=== PATIENT | female | born 1965 | race Caucasian/White ===

== ENCOUNTER 2016-10-25 05:42 | Outpatient (CLI) | payer BC ==
[2016-10-25] VITALS (18 sets, daily range): BP systolic 103–141; BP diastolic 55–63; PULSE 48–56; RESP 16–20; TEMP 97.8–98.2; O2SAT 91–96; Ht 160 cm; Wt 93.3 kg
[~2016-10-25] VITALS: Ht 160 cm; Wt 93.3 kg
[~2016-10-25 05:42] MED LIST: AMLO5TAB2 PO; ASPI-557 PO; ATOR40TA64 PO; CLOP75TA PO; LOSA100T44 PO; METO25TA6 PO; NITR0.4T SL; OMEP20CA4 PO; TRAZ-170 PO
--- NOTE | 2016-10-25 05:50 | NUR ---
ADMIT TO ROOM 118 FROM HOME, AMBULATORY, WITH . ALERT AND ORIENTED.
[2016-10-25 06:49] LABS: BASOPHILS # (AUTO) 0.1 T/MM3 (0-0.2); BASOPHILS % (AUTO) 0.5 % (0-2); EOSINOPHILS # (AUTO) 0.3 T/MM3 (0-0.5); EOSINOPHILS % (AUTO) 2.3 % (0-4); HCT - HEMATOCRIT 38.4 % (36-46); HGB - HEMOGLOBIN 12.9 GM/DL (12-16); IMMATURE GRANULOCYTE # (AUTO) 0.04 T/MM3 (0.00-0.03); IMMATURE GRANULOCYTE % (AUTO) 0.3 % (0.0-0.5); LYMPHOCYTES # (AUTO) 3.9 T/MM3 (1-4.8); LYMPHOCYTES % (AUTO) 32.3 % (23-45); MEAN CORPUSCULAR HGB 30.3 UUG (26-34); MEAN CORPUSCULAR HGB CONC(MCHC 33.6 GM/DL (31-37); MEAN CORPUSCULAR VOLUME 90.1 UM3 (80-100); MEAN PLATELET VOLUME 9.3 UM3 (9.4-12.4); MONOCYTES # (AUTO) 0.9 T/MM3 (0-0.8); MONOCYTES % (AUTO) 7.5 % (0-9.0); NEUTROPHILS #(AUTO)-ABSOLUTE 6.9 T/MM3 (1.8-7.7); NEUTROPHILS % (AUTO) 57.1 % (33-66); RED BLOOD COUNT 4.26 M/MM3 (4.00-5.20)
[2016-10-25 07:00] LABS: ANION GAP 13 MEQ/L (5-15); BUN/CREATININE RATIO 15 RATIO (6-26); CALCIUM 9.2 MG/DL (8.4-10.2); CHLORIDE 109 MEQ/L (98-107); CO2 - CARBON DIOXIDE 22 MEQ/L (22-30); CREATININE 0.8 MG/DL (0.7-1.2); GLOMERULAR FILTRATION RATE 75; GLUCOSE 135 MG/DL (65-110); POTASSIUM 3.8 MEQ/L (3.6-5); SODIUM 144 MEQ/L (134-144)
[2016-10-25] MEDS: NORMAL SALINE 1,000 ML IV SCH ×2 (07:08→19:31)
[2016-10-25] MEDS ORDERED: HEPARIN 1,000units in NS 500ml BAG IV ONE (07:12)
[2016-10-25] MEDS ORDERED: LIDOCAINE 1% (10mg/ml) 30ml SDV ONE (07:12)
[2016-10-25] MEDS ORDERED: IOHEXOL 350mg/ml 200ml BOTTLE ONE (07:13)
[2016-10-25] MEDS ORDERED: FENTANYL 100mcg/2ml INJECTION ONE ×2 (07:23→08:18)
[2016-10-25] MEDS ORDERED: SALINE FLUSH 10ml SYRINGE ONE (07:24)
[2016-10-25] MEDS ORDERED: MIDAZOLAM 5mg/5ml INJECTION ONE (07:24)
--- NOTE | 2016-10-25 07:37 | NUR ---
TO INTAKE CLERK PATIENT TAKEN TO INTAKE CLERK AT THIS TIME VIA CART AND INTAKE CLERK STAFF. PATIENT STABLE AND IN NO ACUTE DISTRESS AT TIME OF TRANSFER. CHART, CONSENT, AND BP CUFF SENT WITH PATIENT. WILL CONTINUE TO MONITOR.
[2016-10-25] MEDS ORDERED: MORPHINE SULFATE 4 MG SYRINGE IV PRN ×2 (08:30)
[2016-10-25] MEDS ORDERED: ACETAMINOPHEN 325 MG TABLET PO PRN (08:30)
[2016-10-25] MEDS ORDERED: ONDANSETRON 4mg/2ml INJECTION IV PRN (08:30)
[2016-10-25] MEDS ORDERED: MAG-AL + SIM LIQUID 30 ML UDC PO PRN (08:30)
[2016-10-25] MEDS ORDERED: LORAZEPAM 2 MG/ML INJECTION IV PRN (08:30)
[2016-10-25] MEDS ORDERED: PROMETHAZINE 25 MG INJECTION IV PRN (08:30)
[2016-10-25] MEDS ORDERED: BISACODYL 5 MG E.C. TABLET PO PRN (08:30)
[2016-10-25] MEDS ORDERED: METOCLOPRAMIDE 10mg/2ml INJECTION IV PRN (08:30)
[2016-10-25] MEDS ORDERED: MILK OF MAGNESIA 30 ML SUSP PO PRN (08:30)
[2016-10-25] MEDS ORDERED: BISACODYL 10 MG SUPPOSITORY RECTALLY PRN (08:30)
[2016-10-25] MEDS ORDERED: NITROGLYCERIN 0.4 MG SUBLINGUAL TABLET SL PRN ×2 (08:30→15:45)
[2016-10-25] MEDS ORDERED: LORAZEPAM 1 MG TABLET PO PRN (08:30)
[2016-10-25] MEDS ORDERED: HYDROCODONE/APAP 5 mg/325 mg TABLET PO PRN (08:30)
[2016-10-25] MEDS ORDERED: ATROPINE 1 MG/ML VIAL IV PRN (08:30)
--- NOTE | 2016-10-25 08:47 | NUR ---
FROM POT FIREMAN PATIENT ARRIVED FROM POT FIREMAN AT THIS TIME VIA CART AND POT FIREMAN STAFF. PATIENT STABLE AND ON ROOM AIR AT TIME OF TRANSFER. SLIDE BOARD USED TO TRANSFER PATIENT TO SURGICAL UNIT BED. A/OX3. HOB FLAT. HEAD/KNEES LOCKED ON BED. PATIENT GIVEN INSTRUCTIONS ON BEDREST. WILL CONTINUE TO MONITOR.
--- NOTE | 2016-10-25 10:33 | CVPROF ---
DATE OF PROCEDURE October 25, 2016 REFERRING ENTITY [facility] INDICATIONS The patient is a 51-year-old lady with peripheral arterial disease and recurrent claudication and abnormal lower extremity duplex study and was referred for further evaluation by angiography and possible intervention. INFORMED CONSENT Informed consent was obtained after explaining the procedure and the potential risks to the patient who agreed to proceed with the procedure. PROCEDURE 1. Abdominal aortography by placing catheter in abdominal aorta across the renal arteries. 2. Pelvic angiography by placing catheter in distal abdominal aorta. 3. Selective right lower extremity angiogram using crossover technique and placing catheter in right SFA and right common femoral arteries. 4. Runoffs of the left lower extremity through the left femoral sheath. 5. HEALTH AND SAFETY ADVISOR of the right SFA for in-stent restenosis using a 6.0 x 150 drug-eluting Admiral IN.PACT balloon. 6. Successful Mynx deployment for hemostasis. TECHNIQUE She was prepped and draped in the usual sterile techniques. Conscious sedation was performed using Versed and fentanyl. 1% lidocaine was used for local anesthesia. Using modified Seldinger technique, arterial access was obtained into the left femoral artery with placement of a 6-Icelandic arterial sheath. ABDOMINAL AORTOGRAPHY Abdominal aortography showed diffuse disease of the abdominal aorta with about 30% mid abdominal aortic stenosis. There were single renal arteries to each kidney. Left renal artery had about 75-80% stenosis. Right renal artery had about 30-40% stenosis. PELVIC ANGIOGRAPHY Pelvic angiography showed minor irregularities of the common iliacs, external and internal iliacs bilaterally. Left common femoral artery was patent with about 30% stenosis. The right common femoral artery was patent with about 20% stenosis. Selective right lower extremity angiogram showed patent profunda. SFA had 80-90% in-stent restenosis. Popliteal artery was patent. Right posterior tibial artery was occluded. Right anterior tibial and peroneal arteries were patent. Left lower extremity runoffs showed to about 30-40% stenosis of the ostium of the left SFA. Left profunda had ostial 40% stenosis. Left SFA stent was patent with about 40% proximal edge of the stent stenosis. Left popliteal artery was patent. Left posterior tibial artery was occluded. Left anterior tibial artery and peroneal arteries were patent. After reviewing the images we decided to proceed with intervention on right SFA. 7000 units of heparin was administered. The sheath was exchanged for a 7-Icelandic 45 cm Destination sheath which was delivered over the wire into the right SFA. The lesions were crossed using an exchange J-wire. A 6.0 x 150 drug-eluting Admiral IN.PACT balloon was delivered to the lesion site where it was inflated up to 12 atmospheres. Next angiogram showed excellent results with no residual stenosis. The patient tolerated the procedure well with no complications. Long sheath was exchanged for a short 7-Icelandic sheath and Mynx was used for hemostasis. IMPRESSION 1. Peripheral arterial disease as described above. 2. Successful HEALTH AND SAFETY ADVISOR of the right SFA for in-stent restenosis using Admiral IN.PACT drug-eluting balloon. 3. Successful Mynx deployment for hemostasis. PLAN Will keep her on dual antiplatelet platelet therapy at least for three months and have her follow up in clinic. Will continue risk management in future. KELLI
--- NOTE | 2016-10-25 11:10 | NUR ---
CM CM IN TO VISIT WITH PT. SHE IS ALERT AND ORIENTED. HER SPOUSE IS PRESENT. THEY DENY DC NEEDS. PT PLANS TO RETURN HOME. LACE SCORE IS 2. SHE IS GIVEN CM CONTACT INFORMATION. Addendum: 10/25/16 at 1110 by GREGORY WIGGINS RN Amended: Links added.
[2016-10-25] MEDS: AMLODIPINE 5 MG TABLET PO SCH (21:58)
[2016-10-25] MEDS ORDERED: OMEPRAZOLE 20 MG CAPSULE PO SCH (22:00)
[2016-10-25] MEDS ORDERED: TRAZODONE 50 MG TABLET PO SCH (22:00)
[2016-10-25] MEDS ORDERED: ATORVASTATIN 40 MG TABLET PO SCH (22:00)
[2016-10-26 00:23] VITALS: BP 131/63; PULSE 60; RESP 20; TEMP 98; O2SAT 98
[2016-10-26 04:00] VITALS: BP 123/57; PULSE 63; RESP 22; TEMP 98.8; O2SAT 95
--- NOTE | 2016-10-26 05:15 | NUR ---
SHIFT SUMMARY PATIENT IS ALERT AND ORIENTED X3 THIS SHIFT. VITAL SIGNS ARE STABLE ON ROOM AIR. PATIENT AMBULATES WELL WITH STAND BY. PATIENT HAS SMALL AMOUNT OF DRAINAGE AT GROIN SITE FROM PREVIOUS SHIFT, BUT THIS HAS NOT SURPASSED THE PREVIOUS OUTLINE. PATIENT HAS REPORTED NO PAIN, NAUSEA OR VOMITING. WILL CONTINUE TO MONITOR.
[2016-10-26 05:18] LABS: BASOPHILS % (AUTO) 0.2 % (0-2); EOSINOPHILS # (AUTO) 0.3 T/MM3 (0-0.5); EOSINOPHILS % (AUTO) 1.9 % (0-4); HCT - HEMATOCRIT 37.4 % (36-46); HGB - HEMOGLOBIN 12.5 GM/DL (12-16); IMMATURE GRANULOCYTE # (AUTO) 0.03 T/MM3 (0.00-0.03); IMMATURE GRANULOCYTE % (AUTO) 0.2 % (0.0-0.5); LYMPHOCYTES # (AUTO) 3.2 T/MM3 (1-4.8); LYMPHOCYTES % (AUTO) 23.8 % (23-45); MEAN CORPUSCULAR HGB 30.4 UUG (26-34); MEAN CORPUSCULAR HGB CONC(MCHC 33.4 GM/DL (31-37); MEAN PLATELET VOLUME 9.5 UM3 (9.4-12.4); MONOCYTES # (AUTO) 0.9 T/MM3 (0-0.8); MONOCYTES % (AUTO) 6.4 % (0-9.0); NEUTROPHILS % (AUTO) 67.5 % (33-66); RED BLOOD COUNT 4.11 M/MM3 (4.00-5.20); WBC - WHITE BLOOD COUNT 13.4 T/MM3 (4.5-11.0)
[2016-10-26 05:27] LABS: ANION GAP 10 MEQ/L (5-15); BUN/CREATININE RATIO 11 RATIO (6-26); CHLORIDE 108 MEQ/L (98-107); CO2 - CARBON DIOXIDE 25 MEQ/L (22-30); CREATININE 0.9 MG/DL (0.7-1.2); GLOMERULAR FILTRATION RATE 66; GLUCOSE 139 MG/DL (65-110); SODIUM 143 MEQ/L (134-144)
[2016-10-26 08:07] VITALS: BP 130/62; PULSE 62; RESP 18; TEMP 97.5; O2SAT 94
[2016-10-26] MEDS ORDERED: LOSARTAN 100 MG TABLET PO SCH (09:00)
[2016-10-26] MEDS ORDERED: ASPIRIN *EC* 81mg TABLET PO SCH (09:00)
[2016-10-26] MEDS ORDERED: CLOPIDOGREL 75 MG TABLET PO SCH ×2 (09:00)
[2016-10-26] MEDS: NORMAL SALINE 1,000 ML IV SCH (09:11)
[2016-10-26] MEDS: AMLODIPINE 5 MG TABLET PO SCH (09:44)
[2016-10-26 10:07] VITALS: PULSE 62; RESP 18
[2016-10-26 10:15] VITALS: PULSE 62; RESP 18
--- NOTE | 2016-10-26 10:35 | NUR ---
Discharge Pt discharge home in good condition. discharge instructions provided to pt and pt's friend in room. Instructions included but not limited to; follow up appointments, side effects to expect and report, medications, and restrictions. Pt ambulated to front exit with all personal belongings.
--- NOTE | 2016-10-26 11:00 | DSPDOC ---
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 WITH INTERM YANIV Laboratory Laboratory Tests Test 10/25/16 06:36 10/26/16 04:32 White Blood Count 12.0T/MM3 13.4T/MM3 Red Blood Count 4.26M/MM3 4.11M/MM3 Hemoglobin 12.9GM/DL 12.5GM/DL Hematocrit 38.4% 37.4% Mean Corpuscular Volume 90.1UM3 91.0UM3 Mean Corpuscular Hemoglobin 30.3UUG 30.4UUG Mean Corpuscular Hemoglobin Concent 33.6GM/DL 33.4GM/DL RDW Standard Deviation 43.4FL 43.4FL Platelet Count 304T/MM3 299T/MM3 Mean Platelet Volume 9.3UM3 9.5UM3 Immature Granulocyte % (Auto) 0.3% 0.2% Neutrophils (%) (Auto) 57.1% 67.5% Lymphocytes (%) (Auto) 32.3% 23.8% Monocytes (%) (Auto) 7.5% 6.4% Eosinophils (%) (Auto) 2.3% 1.9% Basophils (%) (Auto) 0.5% 0.2% Absolute Immature Granulocyte (auto 0.04T/MM3 0.03T/MM3 Absolute Neutrophils (auto) 6.9T/MM3 9.0T/MM3 Absolute Lymphocytes (auto) 3.9T/MM3 3.2T/MM3 Absolute Monocytes (auto) 0.9T/MM3 0.9T/MM3 Absolute Eosinophils (auto) 0.3T/MM3 0.3T/MM3 Absolute Basophils (auto) 0.1T/MM3 0.0T/MM3 Turbidity < 20 < 20 Sodium Level 144MEQ/L 143MEQ/L Potassium Level 3.8MEQ/L 4.0MEQ/L Chloride Level 109MEQ/L 108MEQ/L Carbon Dioxide Level 22MEQ/L 25MEQ/L Anion Gap 13MEQ/L 10MEQ/L Blood Urea Nitrogen 12.0MG/DL 10.0MG/DL Creatinine 0.8MG/DL 0.9MG/DL Glomerular Filtration Rate Calc 75 66 BUN/Creatinine Ratio 15RATIO 11RATIO Glucose Level 135MG/DL 139MG/DL Calculated Osmolality 279MOSM/KG 276MOSM/KG Calcium Level 9.2MG/DL 9.0MG/DL Icterus Index < 2 < 2 Chemistry Specimen Hemolysis < 15 < 15 Laboratory Tests Test 10/25/16 06:36 10/26/16 04:32 White Blood Count 12.0T/MM3 (4.5-11.0) 13.4T/MM3 (4.5-11.0) Red Blood Count 4.26M/MM3 (4.00-5.20) 4.11M/MM3 (4.00-5.20) Hemoglobin 12.9GM/DL (12-16) 12.5GM/DL (12-16) Hematocrit 38.4% (36-46) 37.4% (36-46) Mean Corpuscular Volume 90.1UM3 (80-100) 91.0UM3 (80-100) Mean Corpuscular Hemoglobin 30.3UUG (26-34) 30.4UUG (26-34) Mean Corpuscular Hemoglobin Concent 33.6GM/DL (31-37) 33.4GM/DL (31-37) RDW Standard Deviation 43.4FL (36.9-50.2) 43.4FL (36.9-50.2) Platelet Count 304T/MM3 (130-400) 299T/MM3 (130-400) Mean Platelet Volume 9.3UM3 (9.4-12.4) 9.5UM3 (9.4-12.4) Immature Granulocyte % (Auto) 0.3% (0.0-0.5) 0.2% (0.0-0.5) Neutrophils (%) (Auto) 57.1% (33-66) 67.5% (33-66) Lymphocytes (%) (Auto) 32.3% (23-45) 23.8% (23-45) Monocytes (%) (Auto) 7.5% (0-9.0) 6.4% (0-9.0) Eosinophils (%) (Auto) 2.3% (0-4) 1.9% (0-4) Basophils (%) (Auto) 0.5% (0-2) 0.2% (0-2) Absolute Immature Granulocyte (auto 0.04T/MM3 (0.00-0.03) 0.03T/MM3 (0.00-0.03) Absolute Neutrophils (auto) 6.9T/MM3 (1.8-7.7) 9.0T/MM3 (1.8-7.7) Absolute Lymphocytes (auto) 3.9T/MM3 (1-4.8) 3.2T/MM3 (1-4.8) Absolute Monocytes (auto) 0.9T/MM3 (0-0.8) 0.9T/MM3 (0-0.8) Absolute Eosinophils (auto) 0.3T/MM3 (0-0.5) 0.3T/MM3 (0-0.5) Absolute Basophils (auto) 0.1T/MM3 (0-0.2) 0.0T/MM3 (0-0.2) Turbidity < 20 (0-20) < 20 (0-20) Sodium Level 144MEQ/L (134-144) 143MEQ/L (134-144) Potassium Level 3.8MEQ/L (3.6-5) 4.0MEQ/L (3.6-5) Chloride Level 109MEQ/L (98-107) 108MEQ/L (98-107) Carbon Dioxide Level 22MEQ/L (22-30) 25MEQ/L (22-30) Anion Gap 13MEQ/L (5-15) 10MEQ/L (5-15) Blood Urea Nitrogen 12.0MG/DL (7-17) 10.0MG/DL (7-17) Creatinine 0.8MG/DL (0.7-1.2) 0.9MG/DL (0.7-1.2) Glomerular Filtration Rate Calc 75 66 BUN/Creatinine Ratio 15RATIO (6-26) 11RATIO (6-26) Glucose Level 135MG/DL (65-110) 139MG/DL (65-110) Calculated Osmolality 279MOSM/KG (261-280) 276MOSM/KG (261-280) Calcium Level 9.2MG/DL (8.4-10.2) 9.0MG/DL (8.4-10.2) Icterus Index < 2 (0-7) < 2 (0-7) Chemistry Specimen Hemolysis < 15 (0-25) < 15 (0-25) History of Present Illness Raciel is a 51 year old female who is well known to Dr. Valdivia with a history of CAD with CABG, arteriosclerosis of the legs, HTN, HLD and Nicotine dependence. She was admitted as an outpatient for a lower extremity angiogram with possible TAILOR WOMEN'S GARMENT ALTERATION/stent. She had successful TAILOR WOMEN'S GARMENT ALTERATION of the right SFA for in-stent restenosis using Admiral IN.PACT drug-eluting balloon. Objective Vital Signs Vital signs Vital Signs 10/26/16 10/26/16 10/26/16 10/26/16 00:23 04:00 08:07 09:43 Temp 98.0 98.8 97.5 Pulse 60 63 62 62 Resp 20 22 18 B/P 131/63 123/57 130/62 130/62 Pulse Ox 98 95 94 O2 Delivery Room Air Room Air Room Air 10/26/16 10/26/16 10:07 10:15 Pulse 62 62 Resp 18 18 Height (Feet): 5 Height (Inches): 3.00 Weight (Kilograms): 93.300 General Alert, Orientated x 3, Cooperative ENMT (Brief) mucosa moist Respiratory (Brief) clear all huitron, equal bilaterally, NOT FOUND: rales, wheezes Cardiovascular (Brief) regular rate, regular rhythm, NOT FOUND: click, gallop, murmur, pedal edema, rub Comments good pedal pulses bilateral Abdomen (Brief) BS normo active x4, soft, NOT FOUND: tender Integumentary (Brief) dry, pink, warm Psychiatric (Brief) alert, oriented Laboratory Laboratory Laboratory Tests Test 10/25/16 06:36 10/26/16 04:32 White Blood Count 12.0T/MM3 13.4T/MM3 Red Blood Count 4.26M/MM3 4.11M/MM3 Hemoglobin 12.9GM/DL 12.5GM/DL Hematocrit 38.4% 37.4% Mean Corpuscular Volume 90.1UM3 91.0UM3 Mean Corpuscular Hemoglobin 30.3UUG 30.4UUG Mean Corpuscular Hemoglobin Concent 33.6GM/DL 33.4GM/DL RDW Standard Deviation 43.4FL 43.4FL Platelet Count 304T/MM3 299T/MM3 Mean Platelet Volume 9.3UM3 9.5UM3 Immature Granulocyte % (Auto) 0.3% 0.2% Neutrophils (%) (Auto) 57.1% 67.5% Lymphocytes (%) (Auto) 32.3% 23.8% Monocytes (%) (Auto) 7.5% 6.4% Eosinophils (%) (Auto) 2.3% 1.9% Basophils (%) (Auto) 0.5% 0.2% Absolute Immature Granulocyte (auto 0.04T/MM3 0.03T/MM3 Absolute Neutrophils (auto) 6.9T/MM3 9.0T/MM3 Absolute Lymphocytes (auto) 3.9T/MM3 3.2T/MM3 Absolute Monocytes (auto) 0.9T/MM3 0.9T/MM3 Absolute Eosinophils (auto) 0.3T/MM3 0.3T/MM3 Absolute Basophils (auto) 0.1T/MM3 0.0T/MM3 Turbidity < 20 < 20 Sodium Level 144MEQ/L 143MEQ/L Potassium Level 3.8MEQ/L 4.0MEQ/L Chloride Level 109MEQ/L 108MEQ/L Carbon Dioxide Level 22MEQ/L 25MEQ/L Anion Gap 13MEQ/L 10MEQ/L Blood Urea Nitrogen 12.0MG/DL 10.0MG/DL Creatinine 0.8MG/DL 0.9MG/DL Glomerular Filtration Rate Calc 75 66 BUN/Creatinine Ratio 15RATIO 11RATIO Glucose Level 135MG/DL 139MG/DL Calculated Osmolality 279MOSM/KG 276MOSM/KG Calcium Level 9.2MG/DL 9.0MG/DL Icterus Index < 2 < 2 Chemistry Specimen Hemolysis < 15 < 15 Laboratory Tests 10/26/16 04:32 Laboratory Tests 10/26/16 04:32 Medications Current Medications Sodium Chloride (Normal Saline IV) 1,000 ml @ 75 mls/hr [id number] IV Last administered on 10/26/16t 09:11; Start 10/25/16 at 06:00 Heparin Sodium/ Sodium Chloride (HEPARIN 1,000units in NS 500ml) 1,000 unit STK- MED ONCE IV ; Start 10/25/16 at 07:12; Stop 10/25/16 at 07:13; Status DC Lidocaine HCl (Xylocaine 1%) 300 mg STK-MED ONCE .ROUTE ; Start 10/25/16 at 07: 12; Stop 10/25/16 at 07:13; Status DC Iohexol (Omnipaque) 1 bottle STK-MED ONCE .ROUTE ; Start 10/25/16 at 07:13; Stop 10/25/16 at 07:14; Status DC Midazolam HCl (Versed) 5 mg STK-MED ONCE .ROUTE ; Start 10/25/16 at 07:24; Stop 10/25/16 at 07:25; Status DC Sodium Chloride (Iv Flush) 10 ml STK-MED ONCE .ROUTE ; Start 10/25/16 at 07:24; Stop 10/25/16 at 07:25; Status DC Iodixanol (Visipaque) 1 bottle STK-MED ONCE IV ; Start 10/25/16 at 08:11; Stop 10/25/16 at 08:12; Status DC Heparin Sodium (Porcine) (Heparin Bolus) 10,000 unit STK-MED ONCE IV ; Start 07/01 at 08:13; Stop 10/25/16 at 08:14; Status DC Fentanyl (Fentanyl) 100 mcg STK-MED ONCE .ROUTE ; Start 10/25/16 at 08:18; Stop 10/25/16 at 08:19; Status DC Atropine Sulfate (ATROPINE 1mg INJ) 0.5 mg Q5M PRN IV pulse<40 bpm AND symptomatic; Start 10/25/16 at 08:30 Acetaminophen (Tylenol Regular Strength) 325-650 mg Q5H PRN PO PAIN; Start 07/01 at 08:30 Morphine Sulfate (Morphine) 2-4 mg Q5MIN PRN IV ANGINA; Start 10/25/16 at 08:30 Acetaminophen/ Hydrocodone Bitart ([place] 5/325) 1-2 tabs Q5H PRN PO PAIN; Start 10/25/16 at 08:30 Promethazine HCl (Phenergan) 12.5-25 mg Q6H PRN IV NAUSEA &/OR VOMITING; Start 10/25/16 at 08:30 Magnesium Hydroxide (Mom) 30 ml DAILY PRN PO CONSTIPATION; Start 10/25/16 at 08 :30 Bisacodyl (Dulcolax) 5-10 mg DAILY PRN PO CONSTIPATION; Start 10/25/16 at 08:30 Al Hydroxide/Mg Hydroxide (Maalox) 30 ml Q3H PRN PO INDIGESTION; Start at 08:30 Lorazepam (Ativan) 0.5-1 mg Q4H PRN IV ANXIETY; Start 10/25/16 at 08:30 Metoclopramide HCl (REGLAN Inj) 5-10 mg Q6H PRN IV NAUSEA &/OR VOMITING; Start 10/25/16 at 08:30 Ondansetron HCl (Zofran) 4 mg Q6H PRN IV NAUSEA &/OR VOMITING; Start 10/25/16 at 08:30 Amlodipine Besylate (Norvasc) 5 mg BID PO Last administered on 10/26/16 09:44 ; Start 10/25/16 at 21:00 Aspirin (Ecotrin) 81 mg DAILY PO Last administered on 10/26/16 09:43; Start at 09:00 Atorvastatin Calcium (LIPITOR 40 mg) 40 mg HS PO Last administered on 21:58; Start 10/25/16 at 22:00 Clopidogrel Bisulfate (Plavix) 75 mg DAILY PO ; Start 10/26/16 at 09:00; Stop at 09:10; Status DC Losartan Potassium (Cozaar) 100 mg DAILY PO Last administered on 10/26/16 09: 43; Start 10/26/16 at 09:00 Metoprolol Tartrate (Lopressor) 12.5 mg BIDBS PO Last administered on 09:42; Start 10/25/16 at 17:30 Nitroglycerin (Nitrostat) 0.4 mg Q5MIN PRN SL CHEST TIGHTNESS; Start 10/25/16 at 15:45 Omeprazole (Prilosec) 20 mg HS PO Last administered on 10/25/16 21:58; Start 10/25/16 at 22:00 Trazodone HCl (Desyrel) 25 mg HS PO Last administered on 10/25/16 21:58; Start 10/25/16 at 22:00 Radiology [place], [place] [address] Name: RACIEL ALLEN Unit #: [id number] Signed Page 2 of 2 MANUFACTURING TECHNOLOGY PROFESSOR PROCEDURE NOTE Report #: [id number] Dictated By: RENE VALDIVIA MD 10/25/16 0829 <Electronically signed by RENE VALDIVIA MD> 10/25/16 1529 Transcribed By: CAL UMAÑA 10/25/16 1031 cc: RENE VALDIVIA MD; [facility]~ [address] [address] [phone] Dictated By: RENE VALDIVIA MD 10/25/16 0829 <Electronically signed by RENE VALDIVIA MD> 10/25/16 1529 Transcribed By: CAL UMAÑA 10/25/16 1031 cc: RENE VALDIVIA MD; [facility] DATE OF PROCEDURE October 25, 2016 [facility] INDICATIONS The patient is a 51-year-old lady with peripheral arterial disease and recurrent claudication and abnormal lower extremity duplex study and was referred for further evaluation by angiography and possible intervention. INFORMED CONSENT Informed consent was obtained after explaining the procedure and the potential risks to the patient who agreed to proceed with the procedure. PROCEDURE 1. Abdominal aortography by placing catheter in abdominal aorta across the renal arteries. 2. Pelvic angiography by placing catheter in distal abdominal aorta. 3. Selective right lower extremity angiogram using crossover technique and placing catheter in right SFA and right common femoral arteries. 4. Runoffs of the left lower extremity through the left femoral sheath. 5. TAILOR WOMEN'S GARMENT ALTERATION of the right SFA for in-stent restenosis using a 6.0 x 150 drug-eluting Admiral IN.PACT balloon. 6. Successful Mynx deployment for hemostasis. TECHNIQUE She was prepped and draped in the usual sterile techniques. Conscious sedation was performed using Versed and fentanyl. 1% lidocaine was used for local anesthesia. Using modified Seldinger technique, arterial access was obtained into the left femoral artery with placement of a 6- Malagasy arterial sheath. ABDOMINAL AORTOGRAPHY Abdominal aortography showed diffuse disease of the abdominal aorta with about 30% mid abdominal aortic stenosis. There were single renal arteries to each kidney. Left renal artery had about 75-80% stenosis. Right renal artery had about 30-40% stenosis. PELVIC ANGIOGRAPHY Pelvic angiography showed minor irregularities of the common iliacs, external and internal iliacs bilaterally. Left common femoral artery was patent with about 30% stenosis. The right common femoral artery was patent with about 20% stenosis. Selective right lower extremity angiogram showed patent profunda. SFA had 80-90 % in-stent restenosis. Popliteal artery was patent. Right posterior tibial artery was occluded. Right anterior tibial and peroneal arteries were patent. Left lower extremity runoffs showed to about 30-40% stenosis of the ostium of the left SFA. Left profunda had ostial 40% stenosis. Left SFA stent was patent with about 40% proximal edge of the stent stenosis. Left popliteal artery was patent. Left posterior tibial artery was occluded. Left anterior tibial artery and peroneal arteries were patent. After reviewing the images we decided to proceed with intervention on right SFA. 7000 units of heparin was administered. The sheath was exchanged for a 7-Malagasy 45 cm Destination sheath which was delivered over the wire into the right SFA. The lesions were crossed using an exchange J- wire. A 6.0 x 150 drug-eluting Admiral IN.PACT balloon was delivered to the lesion site where it was inflated up to 12 atmospheres. Next angiogram showed excellent results with no residual stenosis. The patient tolerated the procedure well with no complications. Long sheath was exchanged for a short 7-Malagasy sheath and Mynx was used for hemostasis. IMPRESSION 1. Peripheral arterial disease as described above. 2. Successful TAILOR WOMEN'S GARMENT ALTERATION of the right SFA for in-stent restenosis using Admiral IN.PACT drug-eluting balloon. 3. Successful Mynx deployment for hemostasis. PLAN Will keep her on dual antiplatelet platelet therapy at least for three months and have her follow up in clinic. Will continue risk management in future. Hospital Course She had successful TAILOR WOMEN'S GARMENT ALTERATION of the right SFA for in-stent restenosis using Admiral IN.PACT drug-eluting balloon yesterday. Problems: Code Status Full Code Home Meds Reported Medications Clopidogrel Bisulfate (Plavix) 75 Mg Tablet, 75 MG PO DAILY 11/25/15 Atorvastatin Calcium (Atorvastatin Calcium) 40 Mg Tablet, 40 MG PO HS 09/29/15 Metoprolol Tartrate (Metoprolol Tartrate) 25 Mg Tablet, 12.5 MG PO BID Take 1 tab, by mouth, one time a day (with breakfast). 09/28/15 Amlodipine Besylate (Amlodipine Besylate) 5 Mg Tablet, 5 MG PO BID 07/27/15 Trazodone HCl (Trazodone HCl) 50 Mg Tablet, 25 MG PO HS 07/27/15 Losartan Potassium (Losartan Potassium) 100 Mg Tablet, 100 MG PO DAILY 07/27/15 Omeprazole (Prilosec) 20 Mg Capsule.dr, 20 MG PO HS 07/26/15 Aspirin (Aspir 81) 81 Mg Tablet.dr, 81 MG PO DAILY 09/25/14 Nitroglycerin (Nitrostat) 0.4 Mg Tablet, 0.4 MG SL Q5MIN Y for CHEST TIGHTNESS 09/25/14 Discharge Disposition Patient is discharged to home in the care of herself in good and stable condition with RX for Plavix and Aspirin. Copies To 1: DEIDRE DESIR HOSSEIN MD 10/30/16 0505: Hospital Course Home Meds Reported Medications Clopidogrel Bisulfate (Plavix) 75 Mg Tablet, 75 MG PO DAILY 11/25/15 Atorvastatin Calcium (Atorvastatin Calcium) 40 Mg Tablet, 40 MG PO HS 09/29/15 Metoprolol Tartrate (Metoprolol Tartrate) 25 Mg Tablet, 12.5 MG PO BID Take 1 tab, by mouth, one time a day (with breakfast). 09/28/15 Amlodipine Besylate (Amlodipine Besylate) 5 Mg Tablet, 5 MG PO BID 07/27/15 Trazodone HCl (Trazodone HCl) 50 Mg Tablet, 25 MG PO HS 07/27/15 Losartan Potassium (Losartan Potassium) 100 Mg Tablet, 100 MG PO DAILY 07/27/15 Omeprazole (Prilosec) 20 Mg Capsule.dr, 20 MG PO HS 07/26/15 Aspirin (Aspir 81) 81 Mg Tablet.dr, 81 MG PO DAILY 09/25/14 Nitroglycerin (Nitrostat) 0.4 Mg Tablet, 0.4 MG SL Q5MIN Y for CHEST TIGHTNESS 09/25/14 Discharge Disposition After examining the patient I agree with the above assessment. I am involved in the formulation of the patient's plan of care. Copies To 1: DEIDRE DESIR AMY M APRN Oct 26, 2016 10:55 RENE VALDIVIA MD Oct 30, 2016 16:32
== END 2016-10-26 10:35 | disposition home or self-care (01) ==
LOC: CATH 05:42 → SRG 05:43 → CATH 10-26 10:35
PROVIDERS: ATTEND Internal Medicine Cardiovascular Disease
DX: T82.856A Stenosis of peripheral vascular stent, initial encounter (principal); I70.213 Atherosclerosis of native arteries of extremities with intermittent claudication, bilateral legs; I25.10 Atherosclerotic heart disease of native coronary artery without angina pectoris; Z95.1 Presence of aortocoronary bypass graft; I10 Essential (primary) hypertension; F17.200 Nicotine dependence, unspecified, uncomplicated; Z79.82 Long term (current) use of aspirin; Z79.899 Other long term (current) drug therapy
CPT/HCPCS: 36247; 36415; 37224; 75625; 75716; 80048; 85025; 93005; C1725; C1760; C1769; C1893; J1644; J2250; J3010; J7030; Q9967

== ENCOUNTER 2016-11-21 12:26 | Emergency (ER) | payer BC ==
[~2016-11-21] VITALS: Ht 157.5 cm; Wt 94.5 kg
[2016-11-21 12:28] VITALS: Ht 157.5 cm; Wt 94.5 kg
--- OUTSIDE RECORDS SUMMARY | 2016-11-21 12:30 | XMS REPORT ---
Author Nam Leal Organization [employer] Address Unknown Phone Unavailable Care Team Providers Care Best Worker Name Role Phone Nam Vargas CP Unavailable Allergies No Known Allergies Problems Problem Type Condition Code Onset Dates Condition Status Problem Coronary atherosclerosis of [place] coronary artery 414.01 Active Problem Tobacco use disorder 305.1 Active Problem Coronary atherosclerosis of unspecified type of vessel, [place] or graft 414.00 Active Assessment Peripheral vascular disease, unspecified I73.9 Active Medications Medication Code System Code Instructions Start Date End Date Status Dosage Atorvastatin Calcium [facility] [address]-09 40 MG Orally Once a day 1 tablet Trazodone HCl [facility] [address]-26 50 MG Orally Once a day Mar 30, 2015 1/2 tablet at hs as needed for insomnia Norvasc [facility] [address]-98 5 MG Orally Once a day 1 tablet Metoprolol Tartrate [facility] [address]-22 25 MG Orally Twice a day 1 tablet Losartan Potassium [facility] [address]-95 100 MG Orally Once a day at bedtime Sep 02, 2014 1 tablet Meclizine HCl [facility] [address]-25 25 MG Orally every 12 hours as needed for vertigo symptoms. May 13, 2015 1 capsule as needed Fenofibrate [facility] [address]-21 48 MG Orally Once a day May 13, 2015 1 tablet Prilosec OTC [facility] [address]78 40 mg Orally Once a day May 13, 2015 1 tablet Aspirin [facility] [address]-50 81 MG Orally Once a day 1 tablet Procedures Procedure Coding System Code Date COMPREHENSIVE METABOLIC PANEL CPT-4 34860 Jun 23, 2015 CREATINE KINASE (CPK) CPT-4 42685 Jun 23, 2015 COMPLETE CBC W/AUTO DIFF WBC CPT-4 78095 Jun 23, 2015 LIPID PANEL CPT-4 76268 Jun 23, 2015 Results Name Result Date Reference Range Unit Abnormality Flag Creatine Kinase CPK ----Creatine Kinase (CPK) 148 36156999 29-168 U/L Lipid Panel ----VLDL Cholesterol 71 27695517 0-28 mg/dL H ----LDL Cholesterol 152 72191789 0-130 mg/dL H ----Cardiac Risk 7.8 07155370 0.0-5.0 H ----Cholesterol 256 99793024 0-199 mg/dL H ----HDL Cholesterol 33 29601011 40-84 mg/dL L ----Triglycerides 356 23102604 0-149 mg/dL H CBC With Platelet and Differential ----Absolute Eosinophils 0.26 15530120 0.00-0.50 10*3 ----Absolute Monocytes 0.82 56612037 0.30-1.00 10*3 ----Neutrophils 58 76181093 51-75 % ----Absolute Basophils 0.09 12536527 0.00-0.20 10*3 ----MPV 9.5 43060311 8.8-14.8 fL ----Monocytes 9 58931820 4-11 % ----RDW 13.3 04216218 11.5-14.5 % ----Lymphocytes 29 71914067 20-46 % ----MCHC 33.6 84620649 32.0-36.0 g/dL ----MCH 30.2 37640302 27.0-32.0 pg ----MCV 89.9 47730502 82.0-99.0 fL ----Immature Granulocytes 0.2 83101500 0.0-1.0 % ----Platelet Count 357 [id number] 150-400 K/uL ----Absolute Lymphocytes 2.71 38952180 0.80-3.30 10*3 ----Absolute Neutrophils 5.38 58764067 1.90-7.00 10*3 ----Eosinophils 3 84302312 0-4 % ----Basophils 1 90369432 0-2 % ----WBC 9.3 36020900 4.8-10.8 K/uL ----RBC 4.64 90352945 4.00-5.20 10*6/uL ----HGB 14.0 85297405 12.0-16.0 g/dL ----HCT 41.7 04906813 37.0-47.0 % Comprehensive Metabolic Panel (CMP) ----Chloride 106 27175627 99-111 mEq/L ----Potassium 4.3 63706691 3.5-5.2 mEq/L ----Albumin 4.0 27795904 3.5-5.0 g/dL ----CO2 24 82901406 22-31 mEq/L ----Alkaline Phosphatase 88 24184303 40-150 U/L ----Protein 7.1 84714955 6.4-8.3 g/dL ----Bilirubin Total 0.4 78465049 0.2-1.2 mg/dL ----Anion Gap 9 32385687 3-20 ----Calcium 9.5 23770147 8.9-10.5 mg/dL ----Globulin 3.1 18101191 1.8-4.0 g/dL ----Sodium 139 09568012 135-144 mEq/L ----BUN 11 76964893 10-20 mg/dL ----ALT (SGPT) 13 42732277 0-55 U/L ----AST (SGOT) 16 41172490 5-34 U/L ----Creatinine 0.87 76618282 0.57-1.11 mg/dL ----Glucose 130 01641613 70-99 mg/dL H eGFR ----eGFR >60 53953962 >60 mL/min Non-HDL Cholesterol ----Non-HDL Cholesterol 223 28226115 0-159 mg/dL H Summary Purpose [employer] Submission
--- OUTSIDE RECORDS SUMMARY | 2016-11-21 12:30 | XMS REPORT ---
Author Pablo Ramos Organization [employer] Address Unknown Phone Unavailable Care Team Providers Care Independent Living Advisor Name Role Phone Pablo Feliz CP Unavailable Allergies No Known Allergies Problems Problem Type Condition ICD-9 Code Onset Dates Condition Status Problem Tobacco use disorder 305.1 Active Assessment Essential hypertension, benign 401.1 Active Problem Essential hypertension, benign 401.1 Active Medications Medication Code System Code Instructions Start Date End Date Status Dosage Losartan Potassium [facility] [address]-49 50 MG Orally Once a day at bedtime Sep 02, 2014 1 tablet Results No Known Results Summary Purpose [employer] Submission
--- OUTSIDE RECORDS SUMMARY | 2016-11-21 12:30 | XMS REPORT ---
Author Author Nam Vargas Organization [employer] Address Unknown Phone Unavailable Care Team Providers Care Project Superintendent Name Role Phone Nam Vargas CP Unavailable Allergies No Known Allergies Problems Problem Type Condition Code Onset Dates Condition Status Problem Hyperlipidemia, unspecified E78.5 Active Problem Coronary atherosclerosis of unspecified type of vessel, [place] or graft 414.00 Active Problem Peripheral vascular disease, unspecified I73.9 Active Problem Coronary atherosclerosis of [place] coronary artery 414.01 Active Problem Tobacco use disorder 305.1 Active Medications Medication Code System Code Instructions Start Date End Date Status Dosage Trazodone HCl [facility] [address]-38 50 MG Orally Once a day Mar 30, 2015 1/2 tablet at as needed for insomnia Results No Known Results Summary Purpose [employer] Submission
--- OUTSIDE RECORDS SUMMARY | 2016-11-21 12:30 | XMS REPORT | Continuity of Care Document ---
Author Author [facility] Organization [facility] Address Unknown Phone Unavailable Support Name Relationship Address Phone RADHA ERWIN MD Caregiver [facility] [address] [facility] [address] [place] [address] [phone] MARY JUSTICE DO Caregiver [facility] [address] [place] [address] MORENO THORNE Next Of Kin Unknown [phone] Insurance Providers Payer Name Policy Number Subscriber Name Relationship Self Pay Raciel Thorne 18 Self Advance Directives Directive Response Recorded Date/Time Ordered Resuscitation Status Full Code 03/25/14 10:12am Resuscitation Documents on File No 03/25/14 10:48am Problems Medical Problems Problem Onset Date Status Acute appendicitis Unknown Active Acute appendicitis Unknown Active Medications Medication Dose Route Sig Days/Qty Instructions Order Date Discontinued Date Status [Lorazepam] 06/05/09 09/23/09 Discontinued Promethazine Hcl Every 6 Hours 06/05/09 09/23/09 Discontinued Ketorolac Tromethamine 2 Ml Q 6H 06/05/09 09/23/09 Discontinued Captopril TWICE A DAY 06/05/09 09/23/09 Discontinued Metoprolol Succinate BEDTIME 06/05/09 09/23/09 Discontinued Captopril 1 Tab PO TWICE A DAY 09/23/09 10/28/09 Discontinued Clonidine Hcl 1 Tab PO TWICE A DAY 09/23/09 10/28/09 Discontinued Furosemide 1 Tab PO DAILY 09/23/09 10/28/09 Discontinued Metoprolol Succinate 1 Tab PO DAILY 10/28/09 10/28/09 Discontinued Pravastatin Sodium 1 Tab PO DAILY 09/23/09 09/23/09 Discontinued Ranitidine Hcl 1 Tab PO 09/23/09 10/28/09 Discontinued Clonidine Hcl 1 Tab PO TWICE A DAY 1/2 tab daily 10/28/09 07/02/10 Discontinued Captopril 1 Tab PO TWICE A DAY 10/28/09 07/02/10 Discontinued Amlodipine Besylate 1 Tab PO DAILY 10/28/09 07/02/10 Discontinued Famotidine 1 Tab PO DAILY 10/28/09 07/02/10 Discontinued Budesonide/Formoterol Fumarate INH DIRECTED 10/28/09 07/02/10 Discontinued Ubidecarenone 10/28/09 07/02/10 Discontinued Ketorolac Tromethamine 60 Mg IM 10/28/09 07/02/10 Discontinued Promethazine Hcl 25 Mg IJ 10/28/09 07/02/10 Discontinued Docusate Sodium 300 Mg PO DAILY 07/02/10 05/30/11 Discontinued Ranitidine Hcl 1 Tab PO DAILY 07/02/10 05/30/11 Discontinued Clopidogrel Bisulfate 1 Tab PO DAILY 07/02/10 05/30/11 Discontinued Clindamycin Hcl 07/02/10 08/14/10 Discontinued [No Daily Meds] 03/25/14 Active Social History Social History Problem Response Recorded Date/Time Smoking Status Current every day smoker 03/25/2014 10:48am Hx Substance Use No 03/25/2014 7:30am Hx Alcohol Use No 03/25/2014 7:30am Has the pt used tobacco in the last 12 months Yes 03/25/2014 10:48am Hospital Discharge Instructions No hospital discharge instructions. Plan of Care No plan of care. Functional Status Query Response Date Recorded Physical Hygiene Self March 25, 2014 7:30am Disabilities None March 25, 2014 9:54am Devices Used None March 25, 2014 9:54am Dressing Self March 25, 2014 7:30am Ambulation Self March 25, 2014 7:30am Diet Self March 25, 2014 7:30am Mental Status Alert Oriented March 25, 2014 9:54am Disabilities None March 25, 2014 9:54am Devices Used None March 25, 2014 9:54am Physical Hygiene Self March 25, 2014 7:30am Dressing Self March 25, 2014 7:30am Ambulation Self March 25, 2014 7:30am Diet Self March 25, 2014 7:30am Allergies, Adverse Reactions, Alerts Allergen Type Severity Reaction Status Last Updated sumatriptan succinate Allergy Severe PA Active 03/25/14 Penicillin Allergy Severe RESP Active 03/25/14 Erythromycin base Allergy Unknown NAUSEA Active 03/25/14 Immunizations Name Given Type Hx Influenza Vaccination No Historical Hx Pneumococcal Vaccination No Historical Hx Influenza Vaccination No Historical Vital Signs Acute Vital Signs Vital Response Date/Time Temperature (Fahrenheit) 98.8 deg F (96.8 - 99.1) Temperature (Calculated Celsius) 37.79660 degrees C (36.0 - 37.3) Temperature Source Oral Pulse Rate (adult) 64 bpm (60 - 100) Respiratory Rate 16 breaths/min (10 - 20) Height 5 ft 3 in Weight 202 lb Body Mass Index 35.0 kg/m^2 Results Test Source Date Result Interp. Ref. Range Comments Activated Partial Thromboplast Time October 28, 2009 6:10am 36.4 SEC H 24- 36 Alanine Aminotransferase (ALT/SGPT) March 25, 2014 8:13am 25 U/L N 9 -52 Albumin March 25, 2014 8:13am 4.1 G/DL N 3.5-5.0 Albumin/Globulin Ratio March 25, 2014 8:13am 1.3 RATIO N 1.1-2.2 Alkaline Phosphatase March 25, 2014 8:13am 90 U/L N 38-126 Amylase Level March 25, 2014 8:13am 52 U/L N 30-110 Anion Gap March 25, 2014 8:13am 11 MEQ/L N 5-15 Aspartate Amino Transf (AST/SGOT) March 25, 2014 8:13am 16 U/L N 14- 36 Atypical/Reactive Lymphocytes October 28, 2009 6:10am 0.2 T/MM3 H 0-0 B-Type Natriuretic Peptide October 28, 2009 6:10am 71 PG/ML N 15-100 BUN/Creatinine Ratio March 25, 2014 8:13am 12 RATIO N 6-26 Band Neutrophils # March 26, 2014 4:34am 0.1 T/MM3 - Band Neutrophils % March 26, 2014 4:34am 1.0 % N 0-6 Basophils # (Auto) March 27, 2014 4:34am 0.0 T/MM3 N 0-0.2 Basophils # (Manual) April 26, 2011 8:35am 0.5 T/MM3 H 0-0.2 Basophils % (Manual) April 26, 2011 8:35am Not Performed 0-2 Basophils (%) (Auto) March 27, 2014 4:34am 0.4 % N 0-2 Blood Urea Nitrogen March 25, 2014 8:13am 12.0 MG/DL N 7-17 Calcium Level March 25, 2014 8:13am 9.7 MG/DL N 8.4-10.2 Calculated Osmolality March 25, 2014 8:13am 275 MOSM/KG N 261-280 Carbon Dioxide Level March 25, 2014 8:13am 26 MEQ/L N 22-30 Chemistry Specimen Hemolysis March 25, 2014 8:13am < 15 0-25 0-25 : No Hemolysis.26-70: Slight Hemolysis - can falsely elevate K and Urine Protein. 71-285: Moderate Hemolysis - can falsely elevate K, Troponin I, CA 19-9, PTH, CSF GLucose, and Urine Protein, and can falsely decrease Phenytoin. 286-999: Gross Hemolysis - can falsely elevate K, Troponin I, CA 19-9, PTH, CSF Glucose, and Urine Protine, and can falsely decrease Phenytoin. Recommend specimen recollection. Chloride Level March 25, 2014 8:13am 105 MEQ/L N 98-107 Cholesterol Level February 15, 2012 12:10pm 157 MG/DL N 132-199 Cholesterol/HDL Ratio February 15, 2012 12:10pm 3.8 RATIO N 0-4.0 Conjugated Bilirubin July 04, 2010 5:20pm 0.00 MG/DL N 0.00-0.30 Creatine Kinase MB October 29, 2009 12:50am 8.1 NG/ML H 0-3.4 Creatinine March 25, 2014 8:13am 1.0 MG/DL N 0.7-1.2 D-Dimer September 23, 2009 9:30am 380 NG/ML N 68-494 <500 NG/ML FIBRIN DEGRADATION EQUIVALENTS=PRESUMPTIVE NEGATIVE FOR PE OR DVT >500 NG/ML FIBRIN DEGRADATION EQUIVALENTS =ADDITIONAL EVALUATION FOR PE OR DVT RECOMMENDED VALUES ARE DECREASED SHARPLY BY ANTICOAGULANT THERAPY Differential Total Cells Counted July 04, 2010 5:20pm 100 % - Eosinophils # (Auto) March 27, 2014 4:34am 0.3 T/MM3 N 0-0.5 Eosinophils # (Manual) March 26, 2014 4:34am 0.1 T/MM3 N 0-0.5 Eosinophils % (Manual) March 26, 2014 4:34am 1.0 % N 0-4 Eosinophils (%) (Auto) March 27, 2014 4:34am 2.6 % N 0-4 Free Thyroxine October 28, 2010 8:38am 0.88 NG/DL N 0.78-2.19 Globulin March 25, 2014 8:13am 3.1 G/DL N 2.4-3.6 Glomerular Filtration Rate Calc March 25, 2014 8:13am 59 - Glucose Level March 25, 2014 8:13am 126 MG/DL H 65-110 HDL Cholesterol Direct February 15, 2012 12:10pm 41 MG/DL N 40-60 Hematocrit March 27, 2014 4:34am 33.8 % L 36-46 Hemoglobin March 27, 2014 4:34am 11.3 GM/DL L 12-16 Hemoglobin A1c February 15, 2012 12:10pm 5.4 % L 6-7 <6.0 NON-DIABETIC RANGE6.0-7.0 ADA THERAPEUTIC RANGE >7.0 ACTION SUGGESTED Icterus Index March 25, 2014 8:13am < 2 0-7 Immature Granulocyte # (Auto) March 27, 2014 4:34am 0.01 T/MM3 N 0.00-0.03 Immature Granulocyte % (Auto) March 27, 2014 4:34am 0.1 % N 0.0-0.5 LDL Cholesterol, Calculated February 15, 2012 12:10pm 116 N 66-159 Lab Scanned Report February 15, 2012 3:12pm LAB TEST FORM REQUEST [id number] - Lipase March 25, 2014 8:13am 36 U/L N 23-300 Lymphocytes # (Auto) March 27, 2014 4:34am 2.8 T/MM3 N 1-4.8 Lymphocytes # (Manual) March 26, 2014 4:34am 3.8 T/MM3 N 1-4.8 Lymphocytes % (Manual) March 26, 2014 4:34am 28.0 % N 23-45 Lymphocytes (%) (Auto) March 27, 2014 4:34am 28.6 % N 23-45 Mean Corpuscular Hemoglobin March 27, 2014 4:34am 31.5 UUG N 26-34 Mean Corpuscular Hemoglobin Concent March 27, 2014 4:34am 33.4 GM/DL N 31-37 Mean Corpuscular Volume March 27, 2014 4:34am 94.2 UM3 N 80-100 Mean Platelet Volume March 27, 2014 4:34am 9.3 UM3 L 9.4-12.4 Monocytes # (Auto) March 27, 2014 4:34am 1.0 T/MM3 H 0-0.8 Monocytes # (Manual) March 26, 2014 4:34am 0.4 T/MM3 N 0-0.8 Monocytes % (Manual) March 26, 2014 4:34am 3.0 % N 0-9.0 Monocytes (%) (Auto) March 27, 2014 4:34am 10.4 % H 0-9.0 Neutrophils # (Auto) March 27, 2014 4:34am 5.7 T/MM3 N 1.8-7.7 Neutrophils # (Manual) March 26, 2014 4:34am 9.0 T/MM3 H 1.8-7.7 Neutrophils % (Manual) March 26, 2014 4:34am 67.0 % H 33-66 Neutrophils (%) (Auto) March 27, 2014 4:34am 57.9 % N 33-66 Non-Respiratory Viral Culture February 07, 2010 10:45am Send out - LEFT HAND Platelet Count March 27, 2014 4:34am 294 T/MM3 N 130-400 Potassium Level March 25, 2014 8:13am 3.7 MEQ/L N 3.6-5 Prothromb Time International Ratio October 28, 2009 6:10am 1.10 N 0.79- 1.23 THERAPUTIC RANGE=2.00-3.00 FOR ANTI-THROMBOSIS THERAPUTIC RANGE=2.50- 3.50 FOR IMPLANTED VALVE RDW Standard Deviation March 27, 2014 4:34am 43.5 FL N 36.9-50.2 Reactive Lymphocytes October 28, 2009 6:10am 1.0 % H 0-0 Reactive Lymphocytes # April 26, 2011 8:35am 0.3 T/MM3 H 0-0 Reactive Lymphocytes % April 26, 2011 8:35am Not Performed 0-0 Red Blood Count March 27, 2014 4:34am 3.59 M/MM3 L 4.00-5.20 Sodium Level March 25, 2014 8:13am 142 MEQ/L N 134-144 Thyroid Stimulating Hormone (TSH) October 26, 2011 8:25am 1.86 MIU/L N 0.47-4.68 Total Bilirubin March 25, 2014 8:13am 0.80 MG/DL N 0.20-1.30 Total Creatine Kinase October 29, 2009 12:50am 259 U/L DH 30-135 Total Protein March 25, 2014 8:13am 7.2 G/DL N 6.3-8.2 Triglycerides Level February 15, 2012 12:10pm 292 MG/DL H 35-135 Troponin I October 29, 2009 12:50am 4.940 ng/ml PH 0-0.12 Turbidity March 25, 2014 8:13am < 20 0-20 Unconjugated Bilirubin July 04, 2010 5:20pm 0.40 MG/DL N 0.00-1.10 Urine Bacteria March 25, 2014 7:53am 2+ H - Has specimen been collected/obtained? Y Urine Bilirubin March 25, 2014 7:53am Negative - Has specimen been collected/obtained? Y Urine Blood March 25, 2014 7:53am 1+ H - Has specimen been collected/obtained? Y Urine Collection Type March 25, 2014 7:53am Cleancatch-midstream - Has specimen been collected/obtained? Y Urine Color March 25, 2014 7:53am Yellow - Has specimen been collected/obtained? Y Urine Culture Indicated March 25, 2014 7:53am Cult not indicated - Has specimen been collected/obtained? Y Urine Glucose (UA) March 25, 2014 7:53am Negative - Has specimen been collected/obtained? Y Urine Ketones March 25, 2014 7:53am Negative - Has specimen been collected/obtained? Y Urine Leukocyte Esterase March 25, 2014 7:53am Negative - Has specimen been collected/obtained? Y Urine Nitrite March 25, 2014 7:53am Negative - Has specimen been collected/obtained? Y Urine Protein March 25, 2014 7:53am Trace H - Has specimen been collected/obtained? Y Urine RBC March 25, 2014 7:53am 3-5 /HPF H - Has specimen been collected/obtained? Y Urine Specific [place] March 25, 2014 7:53am >=1.030 H - Has specimen been collected/obtained? Y Urine Squamous Epithelial Cells March 25, 2014 7:53am >50 - Has specimen been collected/obtained? Y Urine Turbidity March 25, 2014 7:53am Sl cloudy - Has specimen been collected/obtained? Y Urine Urobilinogen March 25, 2014 7:53am 0.2 EU/DL - Has specimen been collected/obtained? Y Urine WBC March 25, 2014 7:53am 3-5 /HPF - Has specimen been collected/obtained? Y Urine pH March 25, 2014 7:53am 6.0 - Has specimen been collected/ obtained? Y VLDL Cholesterol February 15, 2012 12:10pm 58.4 MG/DL H 0-28 White Blood Count March 27, 2014 4:34am 9.9 T/MM3 N 4.5-11.0 Blood Culture Blood July 04, 2010 5:20pm NO GROWTH AFTER 5 DAYS Name: RACIEL THORNE Unit #: [id number] : 1965 Sex: F Loc / Svc: ED DOS: 03/25/14 Signed Report #: [id number] DIAGNOSTIC IMAGING REPORT TYPE OF EXAM: CT ABD/PELVIS W/CONTRAST ONLY Dictated By: SEAN SCHAEFER MD INDICATION: ITS.REASON: RLQ pain CT ABD/PELVIS W/CONTRAST ONLY: Comparison: None Technique: Axial CT images were performed through the abdomen and pelvis after the administration of intravenous contrast. Contrast: Omnipaque 300 100 mL Findings: The lung bases are clear. The liver is normal. The liver is slightly decreased in attenuation relative to the spleen. No focal enhancing hepatic lesions or masses. The gallbladder , spleen with accessory splenule, pancreas and adrenal glands are normal. Kidneys are normal. Scattered atherosclerotic plaque in the abdominal aorta and its major branches. Bladder is normal. Uterus is surgically absent. No free fluid. Inflammatory change and stranding surrounding an enlarged enhancing appendix. This is dilated up to 0.8 cm in diameter. No free air or abscess formation. The appendix is in a retrocecal position at the level of the iliac crests. Bone windows show bilateral L5 spondylolysis with spondylolisthesis. Impression: Acute uncomplicated appendicitis. Emergent surgical consultation is recommended. . Procedures Procedure Status Date Provider(s) Laparoscopic appendectomy completed 03/25/14 RADHA ERWIN MD
--- OUTSIDE RECORDS SUMMARY | 2016-11-21 12:31 | XMS REPORT ---
Author Author Nam Vargas Organization [employer] Address Unknown Phone Unavailable Care Team Providers Care Waste Water Treatment Plant Operator Name Role Phone Nam Vargas CP Unavailable Allergies No Known Allergies Problems Problem Type Condition Code Onset Dates Condition Status Problem Coronary atherosclerosis of [place] coronary artery 414.01 Active Problem Tobacco use disorder 305.1 Active Problem Coronary atherosclerosis of unspecified type of vessel, [place] or graft 414.00 Active Assessment Peripheral vascular disease, unspecified I73.9 Active Medications Medication Code System Code Instructions Start Date End Date Status Dosage Prilosec OTC [facility] [address] 40 mg Orally Once a day May 13, 2015 1 tablet Results No Known Results Summary Purpose [employer] Submission
--- OUTSIDE RECORDS SUMMARY | 2016-11-21 12:31 | XMS REPORT | Continuity of Care Document ---
Author Author [facility] Organization [facility] Address Unknown Phone Unavailable Support Name Relationship Address Phone MIGUELINA VALDIVIA MD Caregiver [facility] [address] [place] [address] [address], [address] [place] [phone] MORENO THORNE Next Of Kin Unknown [phone] Insurance Providers Payer Name Policy Number Subscriber Name Relationship Self Pay Francie Thorne 18 Self Advance Directives Directive Response Recorded Date/Time Ordered Resuscitation Status Full Code 09/25/14 7:44am Resuscitation Documents on File No 09/24/14 12:18pm Problems Medical Problems Problem Onset Date Status Acute appendicitis Unknown Active Acute appendicitis Unknown Active Atypical chest pain Unknown Active Atypical chest pain Unknown Active Hx of angina pectoris Unknown Active Chest pain Unknown Active Hx of angina pectoris Unknown Active Medications Medication Dose Route Sig [...] Captopril 1 Tab PO TWICE A DAY 04/15/10 12/18/10 Discontinued Amlodipine Besylate 1 Tab PO DAILY [...] 05/30/11 Discontinued Clindamycin Hcl 07/02/10 08/14/10 Discontinued Losartan Potassium 50 Mg PO BEDTIME 09/08/14 Active Metoprolol Tartrate 50 Mg PO TWICE DAILY WITH MEALS Take 1 tab, by mouth , two time a day with meals. 09/24/14 Active Ranitidine HCl 150 Mg PO TWICE A DAY 09/25/14 Active Atorvastatin Calcium 40 Tab PO BEDTIME 09/25/14 Active Nitroglycerin 0.4 Mg SL NEEDED PRN CHEST TIGHTNESS 09/25/14 Active Aspirin 1 Tab PO DAILY 09/25/14 Active Social History Social History Problem Response Recorded Date/Time Chewing Tobacco Status No 09/24/2014 12:15pm Hx Substance Use No 09/24/2014 12:15pm Hx Alcohol Use Y RARE 09/24/2014 12:15pm Has the pt used tobacco in the last 12 months Yes 09/24/2014 12:15pm Query Response Start Date Stop Date Smoking Status Current every day smoker Hospital Discharge Instructions No hospital discharge instructions. Plan of Care No plan of care. Functional Status Query Response Date Recorded Physical Hygiene Self September 08, 2014 7:06pm Physical Hygiene Self September 08, 2014 7:06pm Allergies, Adverse Reactions, Alerts Allergen Type Severity Reaction Status Last Updated sumatriptan succinate Allergy Severe VT Active 09/25/14 Penicillin Allergy Severe RESP Active 09/25/14 Erythromycin base Allergy Unknown NAUSEA Active 09/25/14 Immunizations Name Given Type Hx Influenza Vaccination No Historical Hx Pneumococcal Vaccination No Historical Hx Influenza Vaccination No Historical Vital Signs Acute Vital Signs Vital Response Date/Time Temperature (Fahrenheit) 97.4 deg F (96.8 - 99.1) Temperature (Calculated Celsius) 36.20324 degrees C (36.0 - 37.3) Temperature Source Temporal Pulse Rate (adult) 68 bpm (60 - 100) Respiratory Rate 19 breaths/min (10 - 20) O2 Sat by Pulse Oximetry 95 % (90 - 100) Oxygen Delivery Method Room Air Blood Pressure 157/67 mm Hg Blood Pressure Source Automatic Cuff Height 5 ft 2 in Weight 182 lb Body Mass Index 33.0 kg/m^2 Results Test Source Date Result Interp. Ref. Range Comments Activated Partial Thromboplast Time September 08, 2014 6:05pm 39.4 SEC H 24-36 Ordering r/o VTE Yes Alanine Aminotransferase (ALT/SGPT) September 08, 2014 6:05pm 28 U/L N 9- 52 Albumin September 08, 2014 6:05pm 4.6 G/DL N 3.5-5.0 Albumin/Globulin Ratio September 08, 2014 6:05pm 1.1 RATIO N 1.1-2.2 Alkaline Phosphatase September 08, 2014 6:05pm 102 U/L N 38-126 Amylase Level March 25, 2014 8:13am 52 U/L N 30-110 Anion Gap September 25, 2014 11:47am 13 MEQ/L N 5-15 COMMENT NURSE WILL CALL WHEN PATIENT ARRIVES Aspartate Amino Transf (AST/SGOT) September 08, 2014 6:05pm 44 U/L H 14- 36 Atypical/Reactive Lymphocytes October 28, 2009 6:10am 0.2 T/MM3 H 0-0 B-Type Natriuretic Peptide October 28, 2009 6:10am 71 PG/ML N 15-100 BUN/Creatinine Ratio September 25, 2014 11:47am 12 RATIO N 6-26 COMMENT NURSE WILL CALL WHEN PATIENT ARRIVES Band Neutrophils # March 26, 2014 4:34am 0.1 T/MM3 - Band Neutrophils % March 26, 2014 4:34am 1.0 % N 0-6 Basophils # (Auto) September 25, 2014 11:47am 0.1 T/MM3 N 0-0.2 COMMENT NURSE WILL CALL WHEN PATIENT ARRIVES Basophils # (Manual) April 26, 2011 8:35am 0.5 T/MM3 H 0-0.2 Basophils % (Manual) April 26, 2011 8:35am Not Performed 0-2 Basophils (%) (Auto) September 25, 2014 11:47am 0.5 % N 0-2 COMMENT NURSE WILL CALL WHEN PATIENT ARRIVES Blood Urea Nitrogen September 25, 2014 11:47am 11.0 MG/DL N 7-17 COMMENT NURSE WILL CALL WHEN PATIENT ARRIVES Calcium Level September 25, 2014 11:47am 9.3 MG/DL N 8.4-10.2 COMMENT NURSE WILL CALL WHEN PATIENT ARRIVES Calculated Osmolality September 25, 2014 11:47am 276 MOSM/KG N 261-280 COMMENT NURSE WILL CALL WHEN PATIENT ARRIVES Carbon Dioxide Level September 25, 2014 11:47am 27 MEQ/L N 22-30 COMMENT NURSE WILL CALL WHEN PATIENT ARRIVES Chemistry Specimen Hemolysis September 25, 2014 11:47am < 15 0-25 0-25: No Hemolysis.26-70: Slight Hemolysis - can falsely elevate K and Urine Protein. 71-285: Moderate Hemolysis - can falsely elevate K, Troponin I, CA 19-9, PTH, CSF GLucose, and Urine Protein, and can falsely decrease Phenytoin. 286-999: Gross Hemolysis - can falsely elevate K, Troponin I, CA 19-9, PTH, CSF Glucose, and Urine Protine, and can falsely decrease Phenytoin. Recommend specimen recollection. Chloride Level September 25, 2014 11:47am 104 MEQ/L N 98-107 COMMENT NURSE WILL CALL WHEN PATIENT ARRIVES Cholesterol Level February 15, 2012 12:10pm 157 MG/DL N 132-199 Cholesterol/HDL Ratio February 15, 2012 12:10pm 3.8 RATIO N 0-4.0 Conjugated Bilirubin July 04, 2010 5:20pm 0.00 MG/DL N 0.00-0.30 Creatine Kinase MB October 29, 2009 12:50am 8.1 NG/ML H 0-3.4 Creatinine September 25, 2014 11:47am 0.9 MG/DL N 0.7-1.2 COMMENT NURSE WILL CALL WHEN PATIENT ARRIVES D-Dimer September 08, 2014 6:05pm < 150 NG/ML 0-230 <230 NG/ML D-DU= PRESUMPTIVE NEGATIVE FOR PE OR DVT>230 NG/ML D-DU=ADDITIONAL EVAL FOR PE OR DVT RECOMMENDED Differential Total Cells Counted July 04, 2010 5:20pm 100 % - Eosinophils # (Auto) September 25, 2014 11:47am 0.3 T/MM3 N 0-0.5 COMMENT NURSE WILL CALL WHEN PATIENT ARRIVES Eosinophils # (Manual) March 26, 2014 4:34am 0.1 T/MM3 N 0-0.5 Eosinophils % (Manual) March 26, 2014 4:34am 1.0 % N 0-4 Eosinophils (%) (Auto) September 25, 2014 11:47am 2.3 % N 0-4 COMMENT NURSE WILL CALL WHEN PATIENT ARRIVES Free Thyroxine October 28, 2010 8:38am 0.88 NG/DL N 0.78-2.19 Globulin September 08, 2014 6:05pm 4.2 G/DL H 2.4-3.6 Glomerular Filtration Rate Calc September 25, 2014 11:47am 67 - COMMENT NURSE WILL CALL WHEN PATIENT ARRIVES Glucose Level September 25, 2014 11:47am 96 MG/DL N 65-110 COMMENT NURSE WILL CALL WHEN PATIENT ARRIVES HDL Cholesterol Direct February 15, 2012 12:10pm 41 MG/DL N 40-60 Hematocrit September 25, 2014 11:47am 38.5 % N 36-46 COMMENT NURSE WILL CALL WHEN PATIENT ARRIVES Hemoglobin September 25, 2014 11:47am 12.7 GM/DL N 12-16 COMMENT NURSE WILL CALL WHEN PATIENT ARRIVES Hemoglobin A1c February 15, 2012 12:10pm 5.4 % L 6-7 <6.0 NON-DIABETIC RANGE6.0-7.0 ADA THERAPEUTIC RANGE >7.0 ACTION SUGGESTED Icterus Index September 25, 2014 11:47am < 2 0-7 COMMENT NURSE WILL CALL WHEN PATIENT ARRIVES Immature Granulocyte # (Auto) September 25, 2014 11:47am 0.02 T/MM3 N 0.00- 0.03 COMMENT NURSE WILL CALL WHEN PATIENT ARRIVES Immature Granulocyte % (Auto) September 25, 2014 11:47am 0.2 % N 0.0-0.5 COMMENT NURSE WILL CALL WHEN PATIENT ARRIVES LDL Cholesterol, Calculated February 15, 2012 12:10pm 116 N 66-159 Lab Scanned Report February 15, 2012 3:12pm LAB TEST FORM REQUEST [id number] - Lipase March 25, 2014 8:13am 36 U/L N 23-300 Lymphocytes # (Auto) September 25, 2014 11:47am 3.7 T/MM3 N 1-4.8 COMMENT NURSE WILL CALL WHEN PATIENT ARRIVES Lymphocytes # (Manual) March 26, 2014 4:34am 3.8 T/MM3 N 1-4.8 Lymphocytes % (Manual) March 26, 2014 4:34am 28.0 % N 23-45 Lymphocytes (%) (Auto) September 25, 2014 11:47am 30.2 % N 23-45 COMMENT NURSE WILL CALL WHEN PATIENT ARRIVES Mean Corpuscular Hemoglobin September 25, 2014 11:47am 30.8 UUG N 26-34 COMMENT NURSE WILL CALL WHEN PATIENT ARRIVES Mean Corpuscular Hemoglobin Concent September 25, 2014 11:47am 33.0 GM/DL N 31-37 COMMENT NURSE WILL CALL WHEN PATIENT ARRIVES Mean Corpuscular Volume September 25, 2014 11:47am 93.4 UM3 N 80-100 COMMENT NURSE WILL CALL WHEN PATIENT ARRIVES Mean Platelet Volume September 25, 2014 11:47am 9.1 UM3 L 9.4-12.4 COMMENT NURSE WILL CALL WHEN PATIENT ARRIVES Monocytes # (Auto) September 25, 2014 11:47am 1.0 T/MM3 H 0-0.8 COMMENT NURSE WILL CALL WHEN PATIENT ARRIVES Monocytes # (Manual) March 26, 2014 4:34am 0.4 T/MM3 N 0-0.8 Monocytes % (Manual) March 26, 2014 4:34am 3.0 % N 0-9.0 Monocytes (%) (Auto) September 25, 2014 11:47am 7.8 % N 0-9.0 COMMENT NURSE WILL CALL WHEN PATIENT ARRIVES MX-Ura-S-Type Natriuretic Peptide September 08, 2014 6:05pm 1120 PG/ML H 0-175 Rule in cut points: <50 years old=450; 50-75 years old=900; >75 years old=1800; When utilizing ProBNP rule-in cut points, adjustment for impaired renal function is typically not required. Neutrophils # (Auto) September 25, 2014 11:47am 7.3 T/MM3 N 1.8-7.7 COMMENT NURSE WILL CALL WHEN PATIENT ARRIVES Neutrophils # (Manual) March 26, 2014 4:34am 9.0 T/MM3 H 1.8-7.7 Neutrophils % (Manual) March 26, 2014 4:34am 67.0 % H 33-66 Neutrophils (%) (Auto) September 25, 2014 11:47am 59.0 % N 33-66 COMMENT NURSE WILL CALL WHEN PATIENT ARRIVES Non-Respiratory Viral Culture February 07, 2010 10:45am Send out - LEFT HAND Platelet Count September 25, 2014 11:47am 342 T/MM3 N 130-400 COMMENT NURSE WILL CALL WHEN PATIENT ARRIVES Potassium Level September 25, 2014 11:47am 4.0 MEQ/L N 3.6-5 COMMENT NURSE WILL CALL WHEN PATIENT ARRIVES Prothromb Time International Ratio September 08, 2014 6:05pm 0.94 N 0.81- 1.09 THERAPUTIC RANGE=2.00-3.00 FOR ANTI-THROMBOSIS THERAPUTIC RANGE=2.50- 3.50 FOR IMPLANTED VALVE RDW Standard Deviation September 25, 2014 11:47am 44.6 FL N 36.9-50.2 COMMENT NURSE WILL CALL WHEN PATIENT ARRIVES Reactive Lymphocytes October 28, 2009 6:10am 1.0 % H 0-0 Reactive Lymphocytes # April 26, 2011 8:35am 0.3 T/MM3 H 0-0 Reactive Lymphocytes % April 26, 2011 8:35am Not Performed 0-0 Red Blood Count September 25, 2014 11:47am 4.12 M/MM3 N 4.00-5.20 COMMENT NURSE WILL CALL WHEN PATIENT ARRIVES Sodium Level September 25, 2014 11:47am 144 MEQ/L N 134-144 COMMENT NURSE WILL CALL WHEN PATIENT ARRIVES Thyroid Stimulating Hormone (TSH) October 26, 2011 8:25am 1.86 MIU/L N 0.47-4.68 Total Bilirubin September 08, 2014 6:05pm 0.90 MG/DL N 0.20-1.30 Total Creatine Kinase October 29, 2009 12:50am 259 U/L DH 30-135 Total Protein September 08, 2014 6:05pm 8.8 G/DL H 6.3-8.2 Triglycerides Level February 15, 2012 12:10pm 292 MG/DL H 35-135 Troponin I September 08, 2014 6:05pm 0.028 ng/ml N 0-0.12 Turbidity September 25, 2014 11:47am < 20 0-20 COMMENT NURSE WILL CALL WHEN PATIENT ARRIVES Unconjugated Bilirubin July 04, 2010 5:20pm 0.40 [...] Has specimen been collected/obtained? Y Urine Specific [place] March 25, 2014 7:53am >=1.030 H - [...] 58.4 MG/DL H 0-28 White Blood Count September 25, 2014 11:47am 12.4 T/MM3 H 4.5-11.0 COMMENT NURSE WILL CALL WHEN PATIENT ARRIVES Blood Culture Blood July 04, 2010 5:20pm NO GROWTH AFTER 5 DAYS Name: FRANCIE THORNE Unit #: [id number] : 1965 Sex: F Loc / Svc: ED DOS: 09/08/14 Signed Report #: [id number] DIAGNOSTIC IMAGING REPORT TYPE OF EXAM: CHEST 1 VIEW Dictated By: SEAN SCHAEFER MD Indication: ITS.REASON: chest pain CHEST 1 VIEW: Comparison: May 30, 2011 FINDINGS: The lungs are clear. There is no abnormal airspace opacity, pleural effusion or pneumothorax identified. Overlying monitoring leads. The heart size, pulmonary vasculature and mediastinum are within normal limits. Degenerative changes again noted in the thoracic spine. IMPRESSION: No acute cardiopulmonary disease. . Procedures No known history of procedures. Encounters Encounter Location Date/Time Departed [facility] 09/25/14 11:19am Registered [facility] 09/16/14 9:22am Departed Emergency Room [facility] 09/08/14 5:52pm
--- OUTSIDE RECORDS SUMMARY | 2016-11-21 12:31 | XMS REPORT ---
Author Author Nam Vargas Organization [employer] Address Unknown Phone Unavailable Care Team Providers Care Converter Operator Name Role Phone Nam Vargas CP Unavailable Allergies No Known Allergies Problems Problem Type Condition Code Onset Dates Condition Status Problem Coronary atherosclerosis of [place] coronary artery 414.01 Active Problem Tobacco use disorder 305.1 Active Problem Atherosclerotic heart disease of [place] coronary artery without angina pectoris I25.10 Active Problem Nicotine dependence, unspecified, uncomplicated F17.200 Active Problem Essential (primary) hypertension I10 Active Problem Hyperlipidemia, unspecified E78.5 Active Problem Coronary atherosclerosis of unspecified type of vessel, [place] or graft 414.00 Active Problem Impaired fasting glucose R73.01 Active Problem Peripheral vascular disease, unspecified I73.9 Active Medications No Known Medications Results No Known Results Summary Purpose [employer] Submission
--- OUTSIDE RECORDS SUMMARY | 2016-11-21 12:31 | XMS REPORT ---
Author Author Nam Vargas Organization [employer] Address Unknown Phone Unavailable Care Team Providers Care Casino Runner Name Role Phone Nam Vargas CP Unavailable Allergies No Known Allergies Problems Problem Type Condition Code Onset Dates Condition Status Problem Hyperlipidemia, unspecified E78.5 Active Problem Coronary atherosclerosis of unspecified type of vessel, [place] or graft 414.00 Active Problem Peripheral vascular disease, unspecified I73.9 Active Problem Coronary atherosclerosis of [place] coronary artery 414.01 Active Problem Tobacco use disorder 305.1 Active Medications Medication Code System Code Instructions Start Date End Date Status Dosage Trazodone HCl [facility] 25583705150 50 Orally Once a day 1/2 tablet at hs as needed for insomnia Results No Known Results Summary Purpose [employer] Submission
--- OUTSIDE RECORDS SUMMARY | 2016-11-21 12:31 | XMS REPORT ---
Author Nam Leal Organization [employer] Address Unknown Phone Unavailable Care Team Providers Care Water Main Inspector Name Role Phone Nam Vargas CP Unavailable Allergies, Adverse Reactions, Alerts Substance Reaction Event Type Penicillin breathing problems Drug Allergy Imitrex Heart attack Drug Allergy Erythromycin vomiting Drug Allergy Problems Problem Type Condition Code Onset Dates Condition Status Assessment Hyperlipidemia, unspecified E78.5 Active Assessment Plantar fascial fibromatosis M72.2 Active Assessment Peripheral vascular disease, unspecified I73.9 Active Problem Hyperlipidemia, unspecified E78.5 Active Problem Coronary atherosclerosis of unspecified type of vessel, [place] or graft 414.00 Active Problem Peripheral vascular disease, unspecified I73.9 Active Assessment Pain in thoracic spine M54.6 Active Assessment Radiculopathy, thoracic region M54.14 Active Problem Coronary atherosclerosis of [place] coronary artery 414.01 Active Problem Tobacco use disorder 305.1 Active Assessment Impaired fasting glucose R73.01 Active Assessment Hematuria, unspecified R31.9 Active Assessment Fall on same level, unspecified, initial encounter W18.30XA Active Assessment Upper abdominal pain, unspecified R10.10 Active Medications Medication Code System Code Instructions Start Date End Date Status Dosage Aspirin [facility] [address]-08 81 MG Orally Once a day 1 tablet Meclizine HCl [facility] [address]-71 25 MG Orally every 12 hours as needed for vertigo symptoms. May 13, 2015 1 capsule as needed Metoprolol Tartrate [facility] [address]-36 25 MG Orally Twice a day 1 tablet Prilosec OTC [facility] 48078-50937 40 mg Orally Once a day May 13, 2015 1 tablet Norvasc [facility] [address]-44 5 MG Orally Once a day 1 tablet Trazodone HCl [facility] [address]-22 50 MG Orally Once a day Mar 30, 2015 1/2 tablet at hs as needed for insomnia Losartan Potassium [facility] [address]-20 100 MG Orally Once a day at bedtime Sep 02, 2014 1 tablet Procedures Procedure Coding System Code Date OFFICE VISIT, EST-MOD. COMPLEXITY (25 MIN) CPT-4 54268 Jul 06, 2015 Vital Signs Date/Time: Jul 06, 2015 Height 62 in Weight 194.0 lbs Temperature 97.6 F Blood Pressure Diastolic 74 mm Hg Blood Pressure Systolic 130 mm Hg Cardiac Monitoring Heart Rate 60 /min BMI 35.48 Index Oximetry 97 % Respiratory Rate 16 /min Results No Known Results Summary Purpose [employer] Submission
--- OUTSIDE RECORDS SUMMARY | 2016-11-21 12:31 | XMS REPORT | Referral Summary ---
Author Organization Unknown Address Unknown Phone Unavailable Care Team Providers Care Hopper Feeder Name Role Phone Other Doctor, [facility] Primary Care Physician Unavailable Encounter [facility] [id number] Date(s): 09/25/14 - 10/03/14 Via [facility] [address] [place] [address] Discharge Disposition: Home or Self Care Attending Physician: Rene Du MD Admitting Physician: Rene Du MD Referring Physician: María Saavedra Vital Signs Most recent to 1 oldest [Reference Range]: Temperature Oral 37.0 degC [35.8-37.3 degC] (10/03/14 7:00 AM) Temperature Temporal 36.4 degC Artery [36.3-37.8 (10/03/14 5:00 AM) degC] Peripheral Pulse 75 bpm Rate [60-100 bpm] (10/03/14 7:48 AM) Peripheral Pulse 78 bpm Rate with Activity (10/01/14 11:07 AM) Heart Rate Monitored 71 bpm [60-100 bpm] (10/01/14 4:05 PM) Respiratory Rate 20 br/min [14-20 br/min] (10/03/14 5:00 AM) Blood Pressure 145/81 mmHg [90-140/60-90 mmHg] *HI* (10/03/14 7:48 AM) Systolic Blood 130 mmHg Pressure with (10/01/14 11:07 AM) Activity Diastolic Blood 58 mmHg Pressure with (10/01/14 11:07 AM) Activity Mean Arterial 89 mmHg Pressure, Cuff (10/01/14 3:44 PM) Blood Pressure 124/64 mmHg Invasive (09/30/14 11:00 AM) [90-140/60-90 mmHg] Mean Arterial 85 mmHg Pressure, Invasive (09/30/14 11:00 AM) Most recent to 1 oldest [Reference Range]: SpO2 94 % (10/03/14 7:00 AM) Problem List Condition Effective Dates Status Health Status Informant Acute Active pain(Confirmed) At risk for activity Active intolerance(Confirme d)1 At risk of pressure Active sore(Confirmed) Cardiac Active disorder(Confirmed)2 Obesity(Confirmed) Active patient 1Problem added automatically by system based on initiation of At Risk for Activity Intolerance Plan of Care 2Problem added automatically by system based on initiation of Cardiac Output/ Ineffective Cardiac Perfusion Plan of Care Allergies, Adverse Reactions, Alerts Substance Reaction Severity Status erythromycin uNspecfied Active penicillin Anaphylaxis Severe Active Medications acetaminophen 1,000 mg, Oral, q4hr, as needed for pain, 0 Refill(s) Start Date: 09/25/14 Status: Ordered aspirin 81 mg, Oral, Daily, 0 Refill(s) Start Date: 09/25/14 Status: Ordered atorvastatin 40 mg, Oral, Bedtime (once a day), 0 Refill(s) Start Date: 09/25/14 Status: Ordered losartan 50 mg, Oral, Daily, 0 Refill(s) Start Date: 09/25/14 Status: Ordered metoprolol tartrate 50 mg oral tablet 1 tabs, Oral, BID, # 60 tabs, 0 Refill(s), other reason (Rx) Start Date: 10/03/14 Status: Ordered Nitrostat 0.4 mg sublingual tablet 1 tabs, SubLingual, q5min, Angina/Chest Pain, 0 Refill(s) Start Date: 10/03/14 Status: Ordered Merigold 5 mg-325 mg oral tablet 1-2 tabs, Oral, q4hr, Pain Moderate (4-6), 0 Refill(s) Start Date: 10/03/14 Status: Ordered ranitidine 150 mg, Oral, BID, 0 Refill(s) Start Date: 09/25/14 Status: Ordered Results Blood Gases Most recent to 1 oldest [Reference Range]: pH [7.35-7.45] 7.36 (09/29/14 6:13 PM) PCO2 Arterial POC 42 mmHg [35-45 mmHg] (09/29/14 10:55 AM) pCO2 Art [35-45 38 mmHg mmHg] (09/29/14 6:13 PM) CO2 Totl Art [23-27 25 mEq/L mEq/L] (09/29/14 10:55 AM) Arterial PO2 [80-100 70 mmHg mmHg] *LOW* (09/29/14 6:13 PM) Bicarbonate [22-26 21 mEq/L mEq/L] *LOW* (09/29/14 6:13 PM) Bicarbonate Arterial 23 mEq/L POC [22-26 mEq/L] (09/29/14 10:55 AM) Base Excess Arterial -2 POC [0-2] *LOW* (09/29/14 10:55 AM) Base Excess Art -4 [0-2] *LOW* (09/29/14 6:13 PM) SaO2 Art [90.0-97.0 92.8 % %] (09/29/14 6:13 PM) O2 Saturation 98.0 % Arterial POC *HI* [90.0-97.0 %] (09/29/14 10:55 AM) pH Arterial POC 7.35 [7.35-7.45] (09/29/14 10:55 AM) PO2 Arterial POC 104 mmHg [80-100 mmHg] *HI* (09/29/14 10:55 AM) O2 Panel Spont.Vent Mode (09/29/14 6:13 PM) Vent Mode AC (09/29/14 12:28 PM) Set Vt 500 mL (09/29/14 12:28 PM) Set Rate 14 br/min (09/29/14 12:28 PM) FiO2 Art [0-100] 40 (09/29/14 6:13 PM) PEEP 5.0 (09/29/14 6:13 PM) Inspiratory Time Art 1.00 (09/29/14 12:28 PM) Tubing Compensation 100 % (09/29/14 6:13 PM) Spec Site A-Line (09/29/14 6:13 PM) Hematology Most recent to 1 oldest [Reference Range]: WBC [4.8-10.8 K/uL] 12.0 K/uL *HI* (10/02/14 8:11 AM) RBC [4.00-5.20 M/uL] 3.12 M/uL *LOW* (10/02/14 8:11 AM) Hgb [12.0-16.0 9.5 gm/dL gm/dL] *LOW* (10/02/14 8:11 AM) Hct [37.0-47.0 %] 28.9 % *LOW* (10/02/14 8:11 AM) MCV [82.0-99.0 fL] 92.6 fL (10/02/14 8:11 AM) MCH [27.0-32.0 pg] 30.4 pg (10/02/14 8:11 AM) MCHC [32.0-36.0 32.9 gm/dL gm/dL] (10/02/14 8:11 AM) RDW [11.5-14.5 %] 13.6 % (10/02/14 8:11 AM) Platelet [150-400 249 K/uL K/uL] (10/02/14 8:11 AM) MPV [9.4-12.4 fL] 9.5 fL (10/02/14 8:11 AM) Immature 0.4 % Granulocytes (09/30/14 4:33 AM) [0.0-1.0 %] Neutrophils [51-75 75 % %] (09/30/14 4:33 AM) Lymphocytes [20-46 16 % %] *LOW* (09/30/14 4:33 AM) Monocytes [4-11 %] 9 % (09/30/14 4:33 AM) Eosinophils [0-4 %] 0 % (09/30/14 4:33 AM) Basophils [0-2 %] 0 % (09/30/14 4:33 AM) Neutro Absolute 13.50 THOUS [1.90-7.00 THOUS] *HI* (09/30/14 4:33 AM) Lymph Absolute 2.83 THOUS [0.80-3.30 THOUS] (09/30/14 4:33 AM) [place] Absolute 1.66 THOUS [0.30-1.00 THOUS] *HI* (09/30/14 4:33 AM) Eos Absolute 0.01 THOUS [0.00-0.50 THOUS] (09/30/14 4:33 AM) Baso Absolute 0.01 THOUS [0.00-0.20 THOUS] (09/30/14 4:33 AM) Nucleated RBC 0.0 /100 WBC Automated [0 /100 (09/30/14 4:33 AM) WBC] Coagulation Most recent to 1 oldest [Reference Range]: INR [0.9-1.2] 1.4 *HI* (09/29/14 10:54 AM) PTT [25.0-35.0] 36.1 *HI* (09/29/14 10:54 AM) Fibrinogen Lvl 295 mg/dL [187-520 mg/dL] (09/29/14 10:54 AM) Chemistry Most recent to 1 oldest [Reference Range]: Sodium Lvl [136-144 139 mEq/L mEq/L] (10/02/14 8:11 AM) Potassium Lvl 3.5 mEq/L [3.6-5.1 mEq/L] *LOW* (10/02/14 8:11 AM) Chloride [99-109 104 mEq/L mEq/L] (10/02/14 8:11 AM) CO2 [22-32 mEq/L] 29 mEq/L (10/02/14 8:11 AM) AGAP [3-20] 6 (10/02/14 8:11 AM) BUN [4-20 mg/dL] 10 mg/dL (10/02/14 8:11 AM) Glucose Lvl [70-100 106 mg/dL mg/dL] *HI* (10/02/14 8:11 AM) Creatinine Lvl 0.77 mg/dL [0.44-1.03 mg/dL] (10/02/14 8:11 AM) eGFR [>60] >60 2 (10/02/14 8:11 AM) Calcium Lvl 8.9 mg/dL [8.6-10.0 mg/dL] (10/02/14 8:11 AM) Albumin Lvl [3.5-4.8 3.6 gm/dL gm/dL] (09/28/14 9:58 AM) Total Protein 7.4 gm/dL [6.1-7.9 gm/dL] (09/28/14 9:58 AM) Globulin [1.9-4.3 3.8 gm/dL gm/dL] (09/28/14 9:58 AM) ALT [14-54 unit/L] 12 unit/L *LOW* (09/28/14 9:58 AM) AST [15-41 unit/L] 12 unit/L *LOW* (09/28/14 9:58 AM) Alk Phos [26-104 96 unit/L unit/L] (09/28/14 9:58 AM) Bili Total [0.2-1.2 0.6 mg/dL 1 mg/dL] (09/28/14 9:58 AM) Magnesium Lvl 2.1 mg/dL [1.8-2.5 mg/dL] (10/01/14 3:24 AM) Calcium Ionized 1.26 mmol/L [1.19-1.41 mmol/L] (10/01/14 3:24 AM) Prealbumin [18-38 19 mg/dL mg/dL] (09/28/14 9:58 AM) Sodium Arterial NPT 142 mEq/L [136-144 mEq/L] (09/29/14 10:55 AM) Potassium Arterial 3.9 mEq/L 3 NPT [3.6-5.1 mEq/L] (09/29/14 10:55 AM) Calcium Ionized 1.04 mmol/L Arterial NPT *LOW* [1.19-1.41 mmol/L] (09/29/14 10:55 AM) HCT Arterial NPT 26.0 % (09/29/14 10:55 AM) HGB Arterial NPT 8.8 gm/dL (09/29/14 10:55 AM) Arterial Glucose NPT 140 mg/dL [70-100 mg/dL] *HI* (09/29/14 10:55 AM) Activated Clotting 138 Time NPT [100-146] (09/29/14 10:55 AM) Blood Glucose, 149 mg/dL Capillary [70-100 *HI* mg/dL] (10/02/14 5:53 PM) Chol [0-200 mg/dL] 130 mg/dL (09/26/14 1:46 AM) Trig [0-150 mg/dL] 239 mg/dL *HI* (09/26/14 1:46 AM) HDL [>40 mg/dL] 34 mg/dL *ABN* (09/26/14 1:46 AM) LDL [0-100 mg/dL] 48 mg/dL (09/26/14 1:46 AM) VLDL Cholesterol 48 mg/dL [0-30 mg/dL] *HI* (09/26/14 1:46 AM) Cardiac Risk 3.8 [0.0-5.0] (09/26/14 1:46 AM) Hep Bs Ag Negative (10/02/14 8:11 AM) Hep C Ab Negative (10/02/14 8:11 AM) HIV 1 and 2 Abs Non-reactive (10/02/14 8:11 AM) Hgb A1c [4.1-5.6 %] 5.4 % (09/28/14 9:57 AM) eAvg Glucose 108.3 mg/dL (09/28/14 7:35 AM) 1Result Comment: Naproxen, specifically the metabolite O-desmethylnaproxen, may cause spurious elevation in Total Bilirubin levels. 2Result Comment: Multiply eGFR results by 1.21 for race. 3Result Comment: This test was performed on a whole blood specimen. The presence or absence of hemolysis cannot be assessed. Hemolysis can falsely elevate potassium levels. Normals are for venous specimens only. Urinalysis Most recent to 1 oldest [Reference Range]: UA Color Lt Yellow (09/28/14 6:04 PM) UA Appear Clear (09/28/14 6:04 PM) UA pH [5.0-8.0] 7.0 (09/28/14 6:04 PM) UA Leuk Est Negative [Negative] (09/28/14 6:04 PM) UA Nitrite Negative [Negative] (09/28/14 6:04 PM) UA Protein Negative [Negative] (09/28/14 6:04 PM) UA Glucose Negative [Negative] (09/28/14 6:04 PM) UA Ketones Negative [Negative] (09/28/14 6:04 PM) UA Urobilinogen Negative [<1.0] (09/28/14 6:04 PM) UA Bili [Negative] Negative (09/28/14 6:04 PM) UA Blood [Negative] Negative (09/28/14 6:04 PM) UA Spec Grav 1.009 [1.003-1.030] (09/28/14 6:04 PM) Type Clean Catch (09/28/14 6:04 PM) Blood Bank Results Most recent to 1 oldest [Reference Range]: ABO/Rh O POS (09/28/14 9:57 AM) Antibody Screen Tube NEG (09/28/14 9:57 AM) Microbiology Reports PROCEDURE: MRSA Screen Culture STATUS: Auth (Verified) BODY SITE: SOURCE: Nares COLLECTED DATE/TIME: 09/28/14 5:06 PM Immunizations Vaccine Date Refusal Reason influenza virus vaccine, live 07/04/10 Procedures Procedure Date Related Diagnosis Body Site Bypass Graft Coronary Artery1 09/29/14 [place] Vein Endoscopic (Left)2 09/29/14 1auto-populated from documented surgical case 2auto-populated from documented surgical case Social History No data available for this section Assessment and Plan No data available for this section
--- OUTSIDE RECORDS SUMMARY | 2016-11-21 12:31 | XMS REPORT ---
Author Author Nam Vargas Organization [employer] Address Unknown Phone Unavailable Care Team Providers Care Quality Assurance Consultant Name Role Phone Nam Vargas CP Unavailable Allergies No Known Allergies Problems Problem Type Condition Code Onset Dates Condition Status Problem Hyperlipidemia, unspecified E78.5 Active Problem Coronary atherosclerosis of unspecified type of vessel, [place] or graft 414.00 Active Problem Peripheral vascular disease, unspecified I73.9 Active Problem Coronary atherosclerosis of [place] coronary artery 414.01 Active Problem Tobacco use disorder 305.1 Active Medications No Known Medications Results No Known Results Summary Purpose [employer] Submission
--- OUTSIDE RECORDS SUMMARY | 2016-11-21 12:31 | XMS REPORT ---
Author Author Nam Vargas Organization [employer] Address Unknown Phone Unavailable Care Team Providers Care Network Consultant Name Role Phone Nam Vargas CP Unavailable Allergies, Adverse Reactions, Alerts Substance Reaction Event Type Penicillin breathing problems Drug Allergy Imitrex Heart attack Drug Allergy Erythromycin vomiting Drug Allergy Problems Problem Type Condition Code Onset Dates Condition Status Assessment Atherosclerotic heart disease of [place] coronary artery without angina pectoris I25.10 Active Assessment Benign paroxysmal vertigo, bilateral H81.13 Active Assessment Elevated white blood cell count, unspecified D72.829 Active Assessment Encounter for immunization Z23 Active Problem Coronary atherosclerosis of [place] coronary artery 414.01 Active Problem Tobacco use disorder 305.1 Active Problem Coronary atherosclerosis of unspecified type of vessel, [place] or graft 414.00 Active Assessment Mixed hyperlipidemia E78.2 Active Assessment Cough R05 Active Assessment Peripheral vascular disease, unspecified I73.9 Active Assessment Essential (primary) hypertension I10 Active Medications Medication Code System Code Instructions Start Date End Date Status Dosage Losartan Potassium [facility] [address]-79 100 MG Orally Once a day at bedtime Sep 02, 2014 1 tablet Metoprolol Tartrate [facility] [address]-92 25 MG Orally Twice a day 1 tablet Meclizine HCl [facility] [address]-85 25 MG Orally every 12 hours as needed for vertigo symptoms. May 13, 2015 1 capsule as needed Fenofibrate [facility] [address]-07 48 MG Orally Once a day May 13, 2015 1 tablet Atorvastatin Calcium [facility] [address]-91 40 MG Orally Once a day 1 tablet Trazodone HCl [facility] [address]-06 50 MG Orally Once a day Mar 30, 2015 1/2 tablet at hs as needed for insomnia Prilosec OTC [facility] 88837-42056 20 MG Orally Once a day May 13, 2015 1 tablet Norvasc [facility] [address]-92 5 MG Orally Once a day 1 tablet Aspirin [facility] [address]-99 81 MG Orally Once a day 1 tablet Procedures Procedure Coding System Code Date FLU VACCINE NO PRESERV 3 & > CPT-4 65616 May 13, 2015 ADMINISTRATION, 1ST IMMUNIZATION CPT-4 55780 May 13, 2015 OFFICE VISIT, EST-MOD. COMPLEXITY (25 MIN) CPT-4 95754 May 13, 2015 Vital Signs Date/Time: May 13, 2015 Height 62 in Weight 191.0 lbs Temperature 97.7 F Blood Pressure Diastolic 80 mm Hg Blood Pressure Systolic 142 mm Hg Cardiac Monitoring Heart Rate 58 /min BMI 34.93 Index Respiratory Rate 16 /min Results No Known Results Immunizations Vaccine Administration Date Influenza shot 3 y.o. and older May 13, 2015 Summary Purpose [employer] Submission
--- OUTSIDE RECORDS SUMMARY | 2016-11-21 12:31 | XMS REPORT ---
Author Author Pablo Feliz Organization [employer] Address Unknown Phone Unavailable Care Team Providers Care Park Attendant Name Role Phone Pablo Feliz CP Unavailable Allergies No Known Allergies Problems Problem Type Condition Code Onset Dates Condition Status Problem Essential hypertension, benign 401.1 Active Problem Tobacco use disorder 305.1 Active Problem Coronary atherosclerosis of [place] coronary artery 414.01 Active Medications No Known Medications Results No Known Results Summary Purpose [employer] Submission
--- OUTSIDE RECORDS SUMMARY | 2016-11-21 12:31 | XMS REPORT ---
Author Author Nam Vargas Organization [employer] Address Unknown Phone Unavailable Care Team Providers Care Body Masker Name Role Phone Nam Vargas CP Unavailable Allergies, Adverse Reactions, Alerts Substance Reaction Event Type Penicillin breathing problems Drug Allergy Imitrex Heart attack Drug Allergy Erythromycin vomiting Drug Allergy Problems Problem Type Condition Code Onset Dates Condition Status Assessment Essential (primary) hypertension I10 Active Problem Coronary atherosclerosis of [place] coronary artery 414.01 Active Problem Tobacco use disorder 305.1 Active Problem Atherosclerotic heart disease of [place] coronary artery without angina pectoris I25.10 Active Problem Nicotine dependence, unspecified, uncomplicated F17.200 Active Problem Essential (primary) hypertension I10 Active Problem Hyperlipidemia, unspecified E78.5 Active Problem Coronary atherosclerosis of unspecified type of vessel, [place] or graft 414.00 Active Problem Impaired fasting glucose R73.01 Active Problem Peripheral vascular disease, unspecified I73.9 Active Assessment Impaired fasting glucose R73.01 Active Assessment Nicotine dependence, unspecified, uncomplicated F17.200 Active Assessment Peripheral vascular disease, unspecified I73.9 Active Assessment Insomnia, unspecified G47.00 Active Assessment Atherosclerotic heart disease of [place] coronary artery without angina pectoris I25.10 Active Assessment Encounter for screening mammogram for malignant neoplasm of breast Z12.31 Active Assessment Hyperlipidemia, unspecified E78.5 Active Medications Medication Code System Code Instructions Start Date End Date Status Dosage Aspirin [facility] [address]-47 81 MG Orally Once a day 1 tablet Norvasc [facility] [address]-12 5 MG Orally Once a day 1 tablet Trazodone HCl [facility] [address]-82 50 MG Orally Once a day Mar 30, 2015 1/2 tablet at hs as needed for insomnia Prilosec [facility] [address] 40 mg Orally Once a day May 13, 2015 1 tablet Meclizine HCl [facility] [address]-65 25 MG Orally every 12 hours as needed for vertigo symptoms. May 13, 2015 1 capsule as needed Metoprolol Tartrate [facility] [address]-75 25 MG Orally Twice a day 1 tablet Losartan Potassium [facility] [address]-69 100 MG Orally Once a day at bedtime Sep 02, 2014 1 tablet Procedures Procedure Coding System Code Date OFFICE VISIT, EST-LOW COMPLEXITY (15 MIN.) CPT-4 73311 Mar 16, 2016 Vital Signs Date/Time: Mar 16, 2016 Temperature 98.0 F Height 62 in Weight 204.0 lbs Blood Pressure Diastolic 84 mm Hg Blood Pressure Systolic 126 mm Hg Cardiac Monitoring Heart Rate 60 /min BMI 37.31 Index Oximetry 97 % Respiratory Rate 16 /min Results No Known Results Summary Purpose [employer] Submission
--- OUTSIDE RECORDS SUMMARY | 2016-11-21 12:31 | XMS REPORT ---
Author Author Nam Vargas Organization [employer] Address Unknown Phone Unavailable Care Team Providers Care Valve Pipe Irrigator Name Role Phone Nam Vargas CP Unavailable Allergies No Known Allergies Problems Problem Type Condition Code Onset Dates Condition Status Problem Hyperlipidemia, unspecified E78.5 Active Problem Coronary atherosclerosis of unspecified type of vessel, [place] or graft 414.00 Active Problem Peripheral vascular disease, unspecified I73.9 Active Assessment Pain in thoracic spine M54.6 Active Problem Coronary atherosclerosis of [place] coronary artery 414.01 Active Problem Tobacco use disorder 305.1 Active Medications Medication Code System Code Instructions Start Date End Date Status Dosage Losartan Potassium [facility]NOTE 2] [address]-81 100 MG Orally Once a day at bedtime Sep 02, 2014 1 tablet Meclizine HCl [facility][NOTE 2] [address]-64 25 MG Orally every 12 hours as needed for vertigo symptoms. May 13, 2015 1 capsule as needed [facility] [address] 40 mg Orally Once a day May 13, 2015 1 tablet Metoprolol Tartrate [facility]NOTE 2] [address]-91 25 MG Orally Twice a day 1 tablet Norvasc [facility]NOTE 2] [address]-04 5 MG Orally Once a day 1 tablet Trazodone HCl [facility][NOTE 2] [address]-22 50 MG Orally Once a day Mar 30, 2015 1/2 tablet at hs as needed for insomnia Aspirin [facility][NOTE 2] [address]-22 81 MG Orally Once a day 1 tablet Procedures Procedure Coding System Code Date URINALYSIS WITH MICROSCOPIC CPT-4 24117 Jul 07, 2015 Results No Known Results Summary Purpose [employer] Submission
--- OUTSIDE RECORDS SUMMARY | 2016-11-21 12:31 | XMS REPORT ---
Author Author Nam Vargas Organization [employer] Address Unknown Phone Unavailable Care Team Providers Care Women'S Health Care Nurse Practitioner Name Role Phone Nam Vargas CP Unavailable Allergies, Adverse Reactions, Alerts Substance Reaction Event Type Penicillin breathing problems Drug Allergy Imitrex Heart attack Drug Allergy Erythromycin vomiting Drug Allergy Problems Problem Type Condition Code Onset Dates Condition Status Problem Coronary atherosclerosis of [place] coronary artery 414.01 Active Problem Essential hypertension, benign 401.1 Active Problem Coronary atherosclerosis of unspecified type of vessel, [place] or graft 414.00 Active Assessment Pain in soft tissues of limb 729.5 Active Assessment Coronary atherosclerosis of unspecified type of vessel, [place] or graft 414.00 Active Problem Tobacco use disorder 305.1 Active Assessment Cellulitis/abscess, leg except foot 682.6 Active Medications Medication Code System Code Instructions Start Date End Date Status Dosage Metoprolol Tartrate [facility] [address]-41 25 MG Orally Twice a day 1 tablet Atorvastatin Calcium [facility] [address]-53 40 MG Orally Once a day 1 tablet Aspirin [facility] [address]-98 81 MG Orally Once a day 1 tablet [place] [facility] [address]-91 5-325 MG Orally 12 hours PRN November 04, 2014 1 tablet as needed Losartan Potassium [facility] [address]-86 50 MG Orally Once a day at bedtime Sep 02, 2014 1 tablet Ibuprofen [facility] [address]-45 200 MG Orally every 6 hrs 1 tablet as needed Procedures Procedure Coding System Code Date ANAEROBIC-WOUND CULTURE CPT-4 06934 November 26, 2014 AEROBIC-WOUND CULTURE CPT-4 22728 November 26, 2014 OFFICE VISIT, EST-LOW COMPLEXITY (15 MIN.) CPT-4 20646 November 26, 2014 Vital Signs Date/Time: November 26, 2014 Height 62 in Weight 182.4 lbs Temperature 98.4 F Blood Pressure Diastolic 92 mm Hg Blood Pressure Systolic 140 mm Hg Cardiac Monitoring Heart Rate 64 /min BMI 33.36 Index Oximetry 97 % Respiratory Rate 18 /min Results No Known Results Summary Purpose [employer] Submission
--- OUTSIDE RECORDS SUMMARY | 2016-11-21 12:31 | XMS REPORT ---
Author Author Nam Vargas Organization [employer] Address Unknown Phone Unavailable Care Team Providers Care Yarn Mercerizer Operator Name Role Phone Nam Vargas CP Unavailable Allergies No Known Allergies Problems Problem Type Condition ICD-9 Code Onset Dates Condition Status Problem Coronary atherosclerosis of [place] coronary artery 414.01 Active Problem Essential hypertension, benign 401.1 Active Problem Coronary atherosclerosis of unspecified type of vessel, [place] or graft 414.00 Active Problem Tobacco use disorder 305.1 Active Medications Medication Code System Code Instructions Start Date End Date Status Dosage Trazodone HCl [facility] [address]-11 50 MG Orally Once a day Mar 30, 2015 1/2 tablet at hs as needed for insomnia Results No Known Results Summary Purpose [employer] Submission
--- OUTSIDE RECORDS SUMMARY | 2016-11-21 12:32 | XMS REPORT ---
Author Author Felicia Pike Organization [employer] Address Unknown Phone Unavailable Care Team Providers Care Logistic Manager Name Role Phone Felicia Pike CP Unavailable Allergies, Adverse Reactions, Alerts Substance Reaction Event Type Penicillin breathing problems Drug Allergy Imitrex Heart attack Drug Allergy Erythromycin vomiting Drug Allergy Problems Problem Type Condition Code Onset Dates Condition Status Assessment Acute non-recurrent maxillary sinusitis J01.00 Active Problem Coronary atherosclerosis of [place] coronary artery 414.01 Active Problem Tobacco use disorder 305.1 Active Assessment Abdominal wall hernia K43.9 Active Assessment Cough R05 Active Problem Atherosclerotic heart disease of [place] coronary artery without angina pectoris I25.10 Active Problem Nicotine dependence, unspecified, uncomplicated F17.200 Active Problem Essential (primary) hypertension I10 Active Problem Hyperlipidemia, unspecified E78.5 Active Problem Coronary atherosclerosis of unspecified type of vessel, [place] or graft 414.00 Active Problem Impaired fasting glucose R73.01 Active Problem Peripheral vascular disease, unspecified I73.9 Active Medications Medication Code System Code Instructions Start Date End Date Status Dosage Doxycycline Hyclate [facility] [address]-53 100 MG Orally BID May 30, 2016 Jun 09, 2016 1 tablet Meclizine HCl [facility] [address]-65 25 MG Orally every 12 hours as needed for vertigo symptoms. May 13, 2015 1 capsule as needed ProAir HFA [facility] [address]-77 108 (90 Base) MCG/ACT Inhalation every 4 hrs May 30, 2016 2 puffs as needed Metoprolol Tartrate [facility] [address]-59 25 MG Orally Twice a day 1 tablet Norvasc [facility] [address]-56 5 MG Orally Once a day 1 tablet Trazodone HCl [facility] [address]-11 50 MG Orally Once a day Mar 30, 2015 1/2 tablet at hs as needed for insomnia Tessalon Perles [facility] [address]-56 100 MG Orally Three times a day May 30, 2016 Jun 04, 2016 1 capsule as needed Aspirin [facility] [address]-71 81 MG Orally Once a day 1 tablet Losartan Potassium [facility] [address]-01 100 MG Orally Once a day at bedtime Sep 02, 2014 1 tablet Prilosec OTC [facility] [address] 40 mg Orally Once a day May 13, 2015 1 tablet Procedures Procedure Coding System Code Date OFFICE VISIT, EST-LOW COMPLEXITY (15 MIN.) CPT-4 39509 May 30, 2016 Vital Signs Date/Time: May 30, 2016 Temperature 98.2 F Height 62 in Weight 202.4 lbs Blood Pressure Diastolic 90 mm Hg Blood Pressure Systolic 148 mm Hg Cardiac Monitoring Heart Rate 57 /min BMI 37.02 Index Oximetry 96 % Results No Known Results Summary Purpose [employer] Submission
--- OUTSIDE RECORDS SUMMARY | 2016-11-21 12:32 | XMS REPORT ---
Author Author Susanne Garza Organization Unknown Address [address] [place], [place] [id number] Phone Care Team Providers Care Cloth Framer Name Role Phone Keshawn Garza PP Reason for Referral No Reason for Referral was given. History of Present Illness No HPI available. Problems * Normal Routine History And Physical Adult (V70.0); (Active) Medication * No Active Medications Allergies and Adverse Reactions * Not Known Past Medical History * No Significant Medical History Vital Signs Date Description Test Result 23 Dec 2012 01:56 PM recorded by: Jami Smith Weight 189 lb BP Systolic 126 mm[Hg] Height 63 in Heart Rate 68 /min BP Diastolic 90 mm[Hg] Body Surface Area Calculated 1.89 Body Mass Index Calculated 33.49 Advance Directives * No Advance Directives available. Encounters * Appointment 12/23/2012
--- OUTSIDE RECORDS SUMMARY | 2016-11-21 12:32 | XMS REPORT ---
Author Author Nam Vargas Organization [employer] Address Unknown Phone Unavailable Care Team Providers Care Clinical Information Systems Director Name Role Phone Nam Vargas CP Unavailable Allergies No Known Allergies Problems Problem Type Condition Code Onset Dates Condition Status Problem Coronary atherosclerosis of [place] coronary artery 414.01 Active Problem Essential hypertension, benign 401.1 Active Problem Coronary atherosclerosis of unspecified type of vessel, [place] or graft 414.00 Active Problem Tobacco use disorder 305.1 Active Assessment Coronary atherosclerosis of unspecified type of vessel, [place] or graft 414.00 Active Medications Medication Code System Code Instructions Start Date End Date Status Dosage Trazodone HCl [facility] [address]-64 50 MG Orally Once a day Mar 30, 2015 1/2 tablet at hs as needed for insomnia Atorvastatin Calcium [facility] [address]-67 40 MG Orally Once a day 1 tablet Metoprolol Tartrate [facility] [address]-55 25 MG Orally Twice a day 1 tablet Aspirin [facility] [address]-90 81 MG Orally Once a day 1 tablet Losartan Potassium [facility] [address]-12 50 MG Orally Once a day at bedtime Sep 02, 2014 1 tablet Procedures Procedure Coding System Code Date COMPLETE CBC W/AUTO DIFF WBC CPT-4 00128 May 10, 2015 COMPREHENSIVE METABOLIC PANEL CPT-4 30617 May 10, 2015 URINALYSIS, IN HOUSE CPT-4 23801 May 10, 2015 TSH CPT-4 85298 May 10, 2015 LIPID PANEL CPT-4 23162 May 10, 2015 Results Name Result Date Reference Range Unit Abnormality Flag In House Urinalysis, automated Summary Purpose [employer] Submission
--- OUTSIDE RECORDS SUMMARY | 2016-11-21 12:32 | XMS REPORT ---
Author Author Fela Yu Organization [employer] Address Unknown Phone Unavailable Care Team Providers Care Corsetier Name Role Phone Fela Yu CP Unavailable Allergies No Known Allergies Problems Problem Type Condition Code Onset Dates Condition Status Problem Coronary atherosclerosis of [place] coronary artery 414.01 Active Problem Essential hypertension, benign 401.1 Active Problem Coronary atherosclerosis of unspecified type of vessel, [place] or graft 414.00 Active Problem Tobacco use disorder 305.1 Active Assessment Other specified disorder of skin 709.8 Active Medications Medication Code System Code Instructions Start Date End Date Status Dosage [place] [facility] [address]-74 5-325 MG Orally 12 hours PRN November 04, 2014 1 tablet as needed Atorvastatin Calcium [facility] [address]-44 40 MG Orally Once a day 1 tablet Metoprolol Tartrate [facility] [address]-02 25 MG Orally Twice a day 1 tablet Aspirin [facility] [address]-94 81 MG Orally Once a day 1 tablet Losartan Potassium [facility] [address]-00 50 MG Orally Once a day at bedtime Sep 02, 2014 1 tablet Ibuprofen [facility] [address]-46 200 MG Orally every 6 hrs 1 tablet as needed Procedures Procedure Coding System Code Date DEBRIDE INFECTED SKIN CPT-4 48175 November 26, 2014 Results No Known Results Summary Purpose [employer] Submission
--- OUTSIDE RECORDS SUMMARY | 2016-11-21 12:32 | XMS REPORT | Continuity of Care Document ---
Author Author [facility] Organization [facility] Address Unknown Phone Unavailable Support Name Relationship Address Phone RADHA ERWIN MD Caregiver [facility] [address] [facility] [place] [phone] VILMA HIDALGO MD Caregiver [address] [place] [address] [place] [phone] MORENO THORNE Next Of Kin Unknown [phone] Insurance Providers Payer Name Policy Number Subscriber Name Relationship Self Pay Francie Thorne 17 Self Problems Medical Problems Problem Onset Date Status [...] Potassium 50 Mg PO BEDTIME 09/08/14 Active Social History Social History Problem Response Recorded Date/Time Hx Substance Use No 09/08/2014 7:06pm Hx Alcohol Use No 09/08/2014 7:06pm Has the pt used tobacco in the last 12 months Yes 03/25/2014 10:48am Query Response Start Date Stop Date Smoking Status Current every day smoker Hospital Discharge Instructions No hospital discharge instructions. Plan of Care No plan of care. Functional Status Query Response Date Recorded Physical Hygiene Self September 08, 2014 7:06pm Disabilities None September 08, 2014 7:06pm Devices Used None September 08, 2014 7:06pm Dressing Self September 08, 2014 7:06pm Ambulation Self September 08, 2014 7:06pm Diet Self September 08, 2014 7:06pm Mental Status Alert Oriented September 08, 2014 7:21pm Disabilities None September 08, 2014 7:06pm Devices Used None September 08, 2014 7:06pm Physical Hygiene Self September 08, 2014 7:06pm Dressing Self September 08, 2014 7:06pm Ambulation Self September 08, 2014 7:06pm Diet Self September 08, 2014 7:06pm Allergies, Adverse Reactions, Alerts Allergen Type Severity Reaction Status Last Updated sumatriptan succinate Allergy Severe UT Active 09/08/14 Penicillin Allergy Severe RESP Active 09/08/14 Erythromycin base Allergy Unknown NAUSEA Active 09/08/14 Immunizations Name Given Type Hx Influenza Vaccination No Historical Hx Pneumococcal Vaccination No Historical Hx Influenza Vaccination No Historical Vital Signs Acute Vital Signs Vital Response Date/Time Temperature (Fahrenheit) 97.6 deg F (96.8 - 99.1) Temperature (Calculated Celsius) 36.01078 degrees C (36.0 - 37.3) Pulse Rate (adult) 69 bpm (60 - 100) Respiratory Rate 17 breaths/min (10 - 20) O2 Sat by Pulse Oximetry 94 % (90 - 100) Blood Pressure 172/80 mm Hg Height 5 ft 3 in Weight 194 lb Body Mass Index 34.0 kg/m^2 Results Test Source Date Result Interp. [...] 52 U/L N 30-110 Anion Gap September 08, 2014 6:05pm 11 MEQ/L N 5-15 Aspartate Amino Transf (AST/SGOT) September 08, 2014 6:05pm 44 U/L H 14- 36 Atypical/Reactive Lymphocytes October 28, 2009 6:10am 0.2 T/MM3 H 0-0 B-Type Natriuretic Peptide October 28, 2009 6:10am 71 PG/ML N 15-100 BUN/Creatinine Ratio September 08, 2014 6:05pm 13 RATIO N 6-26 Band Neutrophils # March 26, 2014 4:34am 0.1 T/MM3 - Band Neutrophils % March 26, 2014 4:34am 1.0 % N 0-6 Basophils # (Auto) September 08, 2014 6:05pm 0.1 T/MM3 N 0-0.2 Basophils # (Manual) April 26, 2011 8:35am 0.5 T/MM3 H 0-0.2 Basophils % (Manual) April 26, 2011 8:35am Not Performed 0-2 Basophils (%) (Auto) September 08, 2014 6:05pm 0.8 % N 0-2 Blood Urea Nitrogen September 08, 2014 6:05pm 10.0 MG/DL N 7-17 Calcium Level September 08, 2014 6:05pm 9.7 MG/DL N 8.4-10.2 Calculated Osmolality September 08, 2014 6:05pm 273 MOSM/KG N 261-280 Carbon Dioxide Level September 08, 2014 6:05pm 29 MEQ/L N 22-30 Chemistry Specimen Hemolysis September 08, 2014 6:05pm 225 H 0-25 0-25: No Hemolysis.26-70: Slight Hemolysis - [...] Phenytoin. Recommend specimen recollection. Chloride Level September 08, 2014 6:05pm 102 MEQ/L N 98-107 Cholesterol Level February 15, 2012 12:10pm 157 MG/DL N 132-199 Cholesterol/HDL Ratio February 15, 2012 12:10pm 3.8 RATIO N 0-4.0 Conjugated Bilirubin July 04, 2010 5:20pm 0.00 MG/DL N 0.00-0.30 Creatine Kinase MB October 29, 2009 12:50am 8.1 NG/ML H 0-3.4 Creatinine September 08, 2014 6:05pm 0.8 MG/DL N 0.7-1.2 D-Dimer September 08, 2014 6:05pm < 150 NG/ML 0-230 <230 NG/ML D-DU= PRESUMPTIVE NEGATIVE FOR PE OR DVT>230 NG/ML D-DU=ADDITIONAL EVAL FOR PE OR DVT RECOMMENDED Differential Total Cells Counted July 04, 2010 5:20pm 100 % - Eosinophils # (Auto) September 08, 2014 6:05pm 0.3 T/MM3 N 0-0.5 Eosinophils # (Manual) March 26, 2014 4:34am 0.1 T/MM3 N 0-0.5 Eosinophils % (Manual) March 26, 2014 4:34am 1.0 % N 0-4 Eosinophils (%) (Auto) September 08, 2014 6:05pm 2.6 % N 0-4 Free Thyroxine October 28, 2010 8:38am 0.88 NG/DL N 0.78-2.19 Globulin September 08, 2014 6:05pm 4.2 G/DL H 2.4-3.6 Glomerular Filtration Rate Calc September 08, 2014 6:05pm 76 - Glucose Level September 08, 2014 6:05pm 115 MG/DL H 65-110 HDL Cholesterol Direct February 15, 2012 12:10pm 41 MG/DL N 40-60 Hematocrit September 08, 2014 6:05pm 40.9 % N 36-46 Hemoglobin September 08, 2014 6:05pm 13.9 GM/DL N 12-16 Hemoglobin A1c February 15, 2012 12:10pm 5.4 % L 6-7 <6.0 NON-DIABETIC RANGE6.0-7.0 ADA THERAPEUTIC RANGE >7.0 ACTION SUGGESTED Icterus Index September 08, 2014 6:05pm < 2 0-7 Immature Granulocyte # (Auto) September 08, 2014 6:05pm 0.02 T/MM3 N 0.00 -0.03 Immature Granulocyte % (Auto) September 08, 2014 6:05pm 0.2 % N 0.0-0.5 LDL Cholesterol, Calculated February 15, 2012 12:10pm 116 N 66-159 Lab Scanned Report February 15, 2012 3:12pm LAB TEST FORM REQUEST [id number] - Lipase March 25, 2014 8:13am 36 U/L N 23-300 Lymphocytes # (Auto) September 08, 2014 6:05pm 3.8 T/MM3 N 1-4.8 Lymphocytes # (Manual) March 26, 2014 4:34am 3.8 T/MM3 N 1-4.8 Lymphocytes % (Manual) March 26, 2014 4:34am 28.0 % N 23-45 Lymphocytes (%) (Auto) September 08, 2014 6:05pm 31.6 % N 23-45 Mean Corpuscular Hemoglobin September 08, 2014 6:05pm 31.3 UUG N 26-34 Mean Corpuscular Hemoglobin Concent September 08, 2014 6:05pm 34.0 GM/DL N 31-37 Mean Corpuscular Volume September 08, 2014 6:05pm 92.1 UM3 N 80-100 Mean Platelet Volume September 08, 2014 6:05pm 9.0 UM3 L 9.4-12.4 Monocytes # (Auto) September 08, 2014 6:05pm 0.9 T/MM3 H 0-0.8 Monocytes # (Manual) March 26, 2014 4:34am 0.4 T/MM3 N 0-0.8 Monocytes % (Manual) March 26, 2014 4:34am 3.0 % N 0-9.0 Monocytes (%) (Auto) September 08, 2014 6:05pm 7.6 % N 0-9.0 IA-Ywj-D-Type Natriuretic Peptide September 08, 2014 6:05pm 1120 PG/ML H 0-175 Rule in cut points: <50 years old=450; 50-75 years old=900; >75 years old=1800; When utilizing ProBNP rule-in cut points, adjustment for impaired renal function is typically not required. Neutrophils # (Auto) September 08, 2014 6:05pm 6.8 T/MM3 N 1.8-7.7 Neutrophils # (Manual) March 26, 2014 4:34am 9.0 T/MM3 H 1.8-7.7 Neutrophils % (Manual) March 26, 2014 4:34am 67.0 % H 33-66 Neutrophils (%) (Auto) September 08, 2014 6:05pm 57.2 % N 33-66 Non-Respiratory Viral Culture February 07, 2010 10:45am Send out - LEFT HAND Platelet Count September 08, 2014 6:05pm 383 T/MM3 N 130-400 Potassium Level September 08, 2014 6:05pm 5.1 MEQ/L H 3.6-5 Prothromb Time International Ratio September 08, 2014 6:05pm 0.94 N 0.81- 1.09 THERAPUTIC RANGE=2.00-3.00 FOR ANTI-THROMBOSIS THERAPUTIC RANGE=2.50- 3.50 FOR IMPLANTED VALVE RDW Standard Deviation September 08, 2014 6:05pm 46.7 FL N 36.9-50.2 Reactive Lymphocytes October 28, 2009 6:10am 1.0 % H 0-0 Reactive Lymphocytes # April 26, 2011 8:35am 0.3 T/MM3 H 0-0 Reactive Lymphocytes % April 26, 2011 8:35am Not Performed 0-0 Red Blood Count September 08, 2014 6:05pm 4.44 M/MM3 N 4.00-5.20 Sodium Level September 08, 2014 6:05pm 142 MEQ/L N 134-144 Thyroid Stimulating Hormone [...] 6:05pm 0.028 ng/ml N 0-0.12 Turbidity September 08, 2014 6:05pm 21 H 0-20 0-21: Turbidity not present.22-999: Turbidity present - Gross turbidity can falsely decrease Lipase and Triglycerides. Unconjugated Bilirubin July 04, 2010 5:20pm 0.40 [...] Has specimen been collected/obtained? Y Urine Specific [place] March 25, 2014 7:53am >=1.030 H - [...] MG/DL H 0-28 White Blood Count September 08, 2014 6:05pm 11.9 T/MM3 H 4.5-11.0 Blood Culture Blood July 04, 2010 5:20pm NO GROWTH AFTER 5 DAYS Procedures No known history of procedures. Encounters Encounter Location Date/Time Departed Emergency Room [facility] 09/08/14 5:52pm Recent Diagnosis
--- OUTSIDE RECORDS SUMMARY | 2016-11-21 12:32 | XMS REPORT ---
Author Author Nam Vargas Organization [employer] Address Unknown Phone Unavailable Care Team Providers Care Hydrogen Power Plant Manager Name Role Phone Nam Vargas Unavailable Allergies No Known Allergies Problems Problem Type Condition Code Onset Dates Condition Status Problem Coronary atherosclerosis of [place] coronary artery 414.01 Active Problem Tobacco use disorder 305.1 Active Problem Coronary atherosclerosis of unspecified type of vessel, [place] or graft 414.00 Active Medications No Known Medications Results No Known Results Summary Purpose eClinicalWorks Submission
--- OUTSIDE RECORDS SUMMARY | 2016-11-21 12:32 | XMS REPORT ---
Author Author Nam Vargas Organization [employer] Address Unknown Phone Unavailable Care Team Providers Care Turpentiner Name Role Phone Nam Vargsa CP Unavailable Allergies, Adverse Reactions, Alerts Substance Reaction Event Type Penicillin breathing problems Drug Allergy Imitrex Heart attack Drug Allergy Erythromycin vomiting Drug Allergy Problems Problem Type Condition Code Onset Dates Condition Status Assessment Fall on same level, unspecified, initial encounter W18.30XA Active Problem Coronary atherosclerosis of [place] coronary artery 414.01 Active Problem Tobacco use disorder 305.1 Active Problem Atherosclerotic heart disease of [place] coronary artery without angina pectoris I25.10 Active Problem Nicotine dependence, unspecified, uncomplicated F17.200 Active Problem Essential (primary) hypertension I10 Active Problem Hyperlipidemia, unspecified E78.5 Active Problem Coronary atherosclerosis of unspecified type of vessel, [place] or graft 414.00 Active Problem Impaired fasting glucose R73.01 Active Problem Peripheral vascular disease, unspecified I73.9 Active Assessment Pain in thoracic spine M54.6 Active Assessment Impaired fasting glucose R73.01 Active Assessment Atherosclerotic heart disease of [place] coronary artery without angina pectoris I25.10 Active Assessment Encounter for immunization Z23 Active Assessment Other chest pain R07.89 Active Medications Medication Code System Code Instructions Start Date End Date Status Dosage Metoprolol Tartrate [facility] [address]-16 25 MG Orally Twice a day 1 tablet Aspirin [facility] [address]-07 81 MG Orally Once a day 1 tablet Meclizine HCl [facility] [address]-95 25 MG Orally every 12 hours as needed for vertigo symptoms. May 13, 2015 1 capsule as needed Trazodone HCl [facility] [address]-50 50 MG Orally Once a day Mar 30, 2015 1/2 tablet at hs as needed for insomnia Losartan Potassium [facility] [address]-32 100 MG Orally Once a day at bedtime Sep 02, 2014 1 tablet Tylenol [facility] [address]-23 325 MG Orally every 6 hrs. take no other tylenol products while on this. drink no alcohol either. Jun 15, 2016 1 to 2 tablets as needed for pain ProAir HFA [facility] [address]-68 108 (90 Base) MCG/ACT Inhalation every 4 hrs May 30, 2016 2 puffs as needed Prilosec OTC [facility] [address] 40 mg Orally Once a day May 13, 2015 1 tablet Norvasc [facility] [address]-67 5 MG Orally Once a day 1 tablet Procedures Procedure Coding System Code Date Fluzone/Fluarix IIV4 Pfree (age 3yr & older) CPT-4 31864 Jun 15, 2016 ADMINISTRATION, 1ST IMMUNIZATION CPT-4 52713 Jun 15, 2016 OFFICE VISIT, EST-LOW COMPLEXITY (15 MIN.) CPT-4 87256 Jun 15, 2016 Vital Signs Date/Time: Jun 15, 2016 Temperature 97.8 F Height 62 in Weight 202.8 lbs Blood Pressure Diastolic 80 mm Hg Blood Pressure Systolic 124 mm Hg Cardiac Monitoring Heart Rate 60 /min BMI 37.09 Index Oximetry 97 % Respiratory Rate 16 /min Results No Known Results Immunizations Vaccine Administration Date Fluzone/Fluarix IIV4 Pfree (age 3yr & older) Jun 15, 2016 Summary Purpose eClinicalWorks Submission
--- OUTSIDE RECORDS SUMMARY | 2016-11-21 12:32 | XMS REPORT | Continuity of Care Document ---
Author Author STEPHANIE [facility] Address Unknown Phone Unavailable Support Name Relationship Address Phone MIGUELINA VALDIVIA MD Caregiver [address] [facility] [address] [place] [address] Unavailable DEIDRE DESIR DO Caregiver [address] [place] [address] Unavailable MORENO THORNE Next Of Kin [address] [place] [address] Insurance Providers Guarantor Francie Allen Address [address] [place] [address] Email [email or web address] Payer [employer] Other Policy Number [id number] Subscriber's Name Sanna Isak Relationship 01 Spouse Group Number [id number] Advance Directives Directive Response Recorded Date/Time Ordered Resuscitation Status Full Code 10/25/16 6:00am DPOA for Healthcare Only No 10/25/16 6:15am Living Will No 10/25/16 6:15am Problems Active Problems Medical Problem Onset Date Status Acute appendicitis Unknown Acute Acute appendicitis Unknown Acute Atypical chest pain Unknown Acute Atypical chest pain Unknown Acute Chest pain Unknown Acute Hx of angina pectoris Unknown Acute Hx of angina pectoris Unknown Acute Past Problems Medical Problem Onset Date Laceration of scalp Unknown Medications Current Home Medications Medication Dose Units Route Directions Days Qty Instructions Start Date Amlodipine Besylate 5 Mg Tablet 5 Mg Oral Twice A Day 07/27/15 Aspirin (Aspir 81) 81 Mg Tablet. 81 Mg Oral Daily 09/25/14 Atorvastatin Calcium 40 Mg Tablet 40 Mg Oral Bedtime 09/29/15 Clopidogrel Bisulfate (Plavix) 75 Mg Tablet 75 Mg Oral Daily 06/30 Losartan Potassium 100 Mg Tablet 100 Mg Oral Daily 07/27/15 Metoprolol Tartrate 25 Mg Tablet 12.5 Mg Oral Twice A Day Take 1 tab , by mouth, one time a day (with breakfast). 09/28/15 Nitroglycerin (Nitrostat) 0.4 Mg Tablet 0.4 Mg Sublingual Every 5 Minutes X 3 as needed for Chest Tightness 09/25/14 Omeprazole (Prilosec) 20 Mg Capsule.dr 20 Mg Oral Bedtime Trazodone Hcl 50 Mg Tablet 25 Mg Oral Bedtime 07/27/15 Past Home Medications Medication Directions Ordered Status Amlodipine Besylate (Norvasc) 10 Mg Tablet, 1 Tab Oral Daily 10/28/09 Discontinued Budesonide/Formoterol Fumarate (Symbicort 80/4.5 Mcg Inhaler) 6.9 Gm Hfa.aer.ad , Inhalation As Directed 10/28/09 Discontinued Captopril 50 Mg Tablet, 1 Tab Oral Twice A Day 10/28/09 Discontinued Captopril 25 Mg Tablet, 1 Tab Oral Twice A Day 09/23/09 Discontinued Captopril (Capoten) 25 Mg Tablet, Twice A Day 06/05/09 Discontinued Clindamycin Hcl (Cleocin Hcl) 150 Mg Capsule, 07/02/10 Discontinued Clonidine Hcl 0.2 Mg Tablet, 1 Tab Oral Twice A Day 10/28/09 Discontinued Clonidine Hcl 0.1 Mg Tablet, 1 Tab Oral Twice A Day 09/23/09 Discontinued Clopidogrel Bisulfate (Plavix) 75 Mg Tablet, 1 Tab Oral Daily 07/02/10 Discontinued Docusate Sodium (Colace) 100 Mg Capsule, 300 Mg Oral Daily 07/02/10 Discontinued Famotidine 20 Mg Tablet, 1 Tab Oral Daily 10/28/09 Discontinued Furosemide 20 Mg Tablet, 1 Tab Oral Daily 09/23/09 Discontinued Ibuprofen (Advil) 200 Mg Tablet, 2 Tab Oral Every 4 Hours as needed for Pain 07/26/15 Discontinued Ketorolac Tromethamine (Toradol) 60 Mg/2 Ml Inj, 60 Mg Intramusc 10/28/09 Discontinued Ketorolac Tromethamine (Toradol) 30 Mg/Ml Vial, 2 Ml Q 6H 06/05/09 Discontinued Lorazepam , 06/05/09 Discontinued Metoprolol Succinate 100 Mg Tab.sr.24h, 1 Tab Oral Daily 10/28/09 Discontinued Metoprolol Succinate 25 Mg Tab.sr.24h, Bedtime 06/05/09 Discontinued Metoprolol Tartrate 50 Mg Tablet, 50 Mg Oral Twice Daily With Meals 07/27/15 Discontinued Pravastatin Sodium 40 Mg Tablet, 1 Tab Oral Daily 09/23/09 Discontinued Promethazine Hcl (Phenergan) 25 Mg/Ml Vial, 25 Mg Injection 10/28/09 Discontinued Promethazine Hcl (Phenergan) 25 Mg/Ml Vial, Every 6 Hours 06/05/09 Discontinued Ranitidine Hcl (Zantac) 150 Mg Capsule, 1 Tab Oral Daily 07/02/10 Discontinued Ranitidine Hcl (Zantac) 150 Mg Tablet, 1 Tab Oral 09/23/09 Discontinued Ubidecarenone (Co Q-10) 100 Mg Capsule, 10/28/09 Discontinued Social History Social History Problem Response Recorded Date/Time Onset Date Status Reason for Hospitalization LE angio 10/26/2016 10:19am Not Applicable Not Applicable Chewing Tobacco Status No 10/25/2016 7:03am Not Applicable Not Applicable Hx Substance Use No 10/25/2016 7:03am Not Applicable Not Applicable Hx Alcohol Use Y RARE 10/25/2016 7:03am Not Applicable Not Applicable Has the pt used tobacco in the last 12 months Yes 10/25/2016 7:03am Not Applicable Not Applicable Query Response Start Date Stop Date Smoking Status Current every day smoker Hospital Discharge Instructions Instructions: Care Instructions: I was in the hospital because (patient own words): "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 No lifting more than 10 pounds, no pushing or pulling for 1 week. Follow Up Appointments: Follow up with Dr. Valdivia on: 11/15/16 at 11:10 Pending Lab / Results: No Pending Lab Patient Instructions: Do not drive, operate machinery or drink alcohol for 2 days. Plavix 75mg daily and Aspirin 81mg daily, DO NOT STOP THESE MEDICATIONS WITHOUT INTRUCTION FROM DR. VALDIVIA TO DO SO. Expected Signs/Symptoms: Bruising and tenderness at the site. Notify Physician If: Site is bleeding, abnormal drainage, increased pain or fever of 101.5 or more. During Business Hours:: Call Dr. Valdivia's office at [phone]. After Business Hours:: Please call [phone] and have the beamer operator page the physician. Pain Management/Treatment: Over the counter pain medication if needed. Pain Scale Utilized to Educate Patient: 0-10 Pain Scale Wound/Incision Care: Keep site clean and dry. No tub baths or swimming for 1 week. You may shower. Condition at time of discharge: Good Plan of Care Discharge Date 10/26/16 10:35am Instructions/Education Provided [facility] Prescriptions See Medication Section Functional Status Query Response Date Recorded Mobility Status Ambulatory October 25, 2016 7:01am Assistive Devices None October 25, 2016 7:01am Activity Limitations None October 25, 2016 7:01am Feeding Ability Independent October 25, 2016 7:01am Toileting Ability Independent October 25, 2016 7:01am Grooming Ability Independent October 25, 2016 7:01am Dressing Ability Independent October 25, 2016 7:01am Driving Ability Independent October 25, 2016 7:01am Housework Ability Independent October 25, 2016 7:01am Meal Preparation Ability Independent October 25, 2016 7:01am Stair Climbing Ability Independent October 25, 2016 7:01am Ability to complete ADL's impeded by No change October 25, 2016 7:01am Cognitive/Perceptual Impairments Impaired vision October 25, 2016 7:01am Visual Assistive Devices Glasses With patient October 25, 2016 7:01am Preferred Method of Learning Reading Pictures Hands on October 25, 2016 7:01am Allergies, Adverse Reactions, Alerts Allergen Type Severity Reaction Status Last Updated sumatriptan succinate Allergy Severe [place] Active 10/25/16 Penicillin Allergy Severe RESP Active 10/25/16 Erythromycin base Allergy Unknown NAUSEA Active 10/25/16 Immunizations Query Response on File Recorded Date/Time Hx Influenza Vaccination Y APR 2016 10/25/16 7:03am Hx Pneumococcal Vaccination Y 201310/25/16 7:03am Hx Influenza Vaccination Y APR 2016 10/25/16 7:03am Influenza Vaccine Hx FALL 201510/25/16 12:00pm Tdap Vaccine Hx NOT CURRENT 11/25/15 7:44pm Vital Signs Acute Vital Signs Vital Response Date/Time Temperature (Fahrenheit) 97.5 deg F (96.8 - 99.1) 10/26/2016 8:07am Temperature (Calculated Celsius) 36.43336 degrees C (36.0 - 37.3) 10/26/2016 8:07am Temperature Source Oral 10/26/2016 8:07am Pulse Rate (adult) 62 bpm (60 - 100) 10/26/2016 10:15am Respiratory Rate 18 breaths/min (10 - 20) 10/26/2016 10:15am O2 Sat by Pulse Oximetry 94 % (90 - 100) 10/26/2016 8:07am Oxygen Delivery Method Room Air 10/26/2016 8:07am Oxygen Delivery Method Room Air 10/25/2016 6:38am Blood Pressure 130/62 mm Hg 10/26/2016 8:07am Blood Pressure Source Automatic Cuff 10/26/2016 8:07am Height (Feet) 5 feet 10/26/2016 11:00am Height (Inches) 3.00 inches 10/26/2016 11:00am Weight (Kilograms) 93.300 kg 10/26/2016 12:27am Body Mass Index (BMI) 36.1 10/25/2016 6:15am Results Laboratory Results Test Name Result Units Flags Reference Collection Date/Time Result Date/ Time Comments White Blood Count 13.4 T/MM3 H 4.5-11.0 10/26/2016 4:32am 10/26/2016 5: 18am Red Blood Count 4.11 M/MM3 4.00-5.20 10/26/2016 4:32am 10/26/2016 5: 18am Hemoglobin 12.5 GM/DL 12-16 10/26/2016 4:3210/26/2016 5:18am Hematocrit 37.4 % 36-46 10/26/2016 4:3210/26/2016 5:18am Mean Corpuscular Volume 91.0 UM3 80-100 10/26/2016 4:32am 10/26/2016 5: 18am Mean Corpuscular Hemoglobin 30.4 UUG 26-34 10/26/2016 4:32am 2016 5:18am Mean Corpuscular Hemoglobin Concent 33.4 GM/DL 31-37 10/26/2016 4:3210/26/2016 5:18am RDW Standard Deviation 43.4 FL 36.9-50.2 10/26/2016 4:3210/26/2016 5 :18am Platelet Count 299 T/MM3 130-400 10/26/2016 4:32am 10/26/2016 5:18am Mean Platelet Volume 9.5 UM3 9.4-12.4 10/26/2016 4:32am 10/26/2016 5: 18am Neutrophils (%) (Auto) 67.5 % H 33-66 10/26/2016 4:3210/26/2016 5: 18am Lymphocytes (%) (Auto) 23.8 % 23-45 10/26/2016 4:10/26/2016 5: 18am Monocytes (%) (Auto) 6.4 % 0-9.0 10/26/2016 4:10/26/2016 5:18am Eosinophils (%) (Auto) 1.9 % 0-4 10/26/2016 4:10/26/2016 5:18am Basophils (%) (Auto) 0.2 % 0-2 10/26/2016 4:10/26/2016 5:18am Immature Granulocyte % (Auto) 0.2 % 0.0-0.5 10/26/2016 4:2016 5:18am Absolute Neutrophils (auto) 9.0 T/MM3 H 1.8-7.7 10/26/2016 4:2016 5:18am Absolute Lymphocytes (auto) 3.2 T/MM3 1-4.8 10/26/2016 4:2016 5:18am Absolute Monocytes (auto) 0.9 T/MM3 H 0-0.8 10/26/2016 4:2016 5:18am Absolute Eosinophils (auto) 0.3 T/MM3 0-0.5 10/26/2016 4:2016 5:18am Absolute Basophils (auto) 0.0 T/MM3 0-0.2 10/26/2016 4:10/26/2016 5:18am Absolute Immature Granulocyte (auto 0.03 T/MM3 0.00-0.03 10/26/2016 4: 10/26/2016 5:18am Icterus Index < 2 0-7 10/26/2016 4:10/26/2016 5:27am Chemistry Specimen Hemolysis < 15 0-25 10/26/2016 4:10/26/2016 5 :27am 0-25: Specimen Exhibited No Hemolysis. Turbidity < 20 0-20 10/26/2016 4:10/26/2016 5:27am Sodium Level 143 MEQ/L 134-144 10/26/2016 4:10/26/2016 5:27am Potassium Level 4.0 MEQ/L 3.6-5 10/26/2016 4:32am 10/26/2016 5:27am Chloride Level 108 MEQ/L H 98-107 10/26/2016 4:32am 10/26/2016 5:27am Carbon Dioxide Level 25 MEQ/L 22-30 10/26/2016 4:32am 10/26/2016 5: 27am Anion Gap 10 MEQ/L 5-15 10/26/2016 4:32am 10/26/2016 5:27am Blood Urea Nitrogen 10.0 MG/DL 7-10/26/2016 4:32am 10/26/2016 5: 27am Creatinine 0.9 MG/DL 0.7-1.2 10/26/2016 4:32am 10/26/2016 5:27am BUN/Creatinine Ratio 11 RATIO 6-10/26/2016 4:32am 10/26/2016 5:27am Glomerular Filtration Rate Calc 66 10/26/2016 4:32am 10/26/2016 5: 27am Glucose Level 139 MG/DL H 65-110 10/26/2016 4:32am 10/26/2016 5:27am Calculated Osmolality 276 MOSM/KG 261-280 10/26/2016 4:32am 10/26/2016 5:27am Calcium Level 9.0 MG/DL 8.4-10.2 10/26/2016 4:32am 10/26/2016 5:27am Procedures No known history of procedures. Encounters Encounter Location Arrival/Admit Date Discharge/Depart Date Attending Provider Departed [facility] 10/25/16 5:42am 10/26/16 10:35am MIGUELINA VALDIVIA MD
--- OUTSIDE RECORDS SUMMARY | 2016-11-21 12:32 | XMS REPORT ---
Author Author Nam Vargas Organization [employer] Address Unknown Phone Unavailable Care Team Providers Care Nurse Practitioner Manager Name Role Phone Nam Vargas CP Unavailable Allergies, Adverse Reactions, Alerts Substance Reaction Event Type Penicillin breathing problems Drug Allergy Imitrex Heart attack Drug Allergy Erythromycin vomiting Drug Allergy Problems Problem Type Condition Code Onset Dates Condition Status Problem Coronary atherosclerosis of [place] coronary artery 414.01 Active Problem Essential hypertension, benign 401.1 Active Problem Coronary atherosclerosis of unspecified type of vessel, [place] or graft 414.00 Active Assessment Coronary atherosclerosis of unspecified type of vessel, [place] or graft 414.00 Active Problem Tobacco use disorder 305.1 Active Assessment Cellulitis/abscess, leg except foot 682.6 Active Medications Medication Code System Code Instructions Start Date End Date Status Dosage Ibuprofen [facility] [address]-80 200 MG Orally every 6 hrs 1 tablet as needed Metoprolol Tartrate [facility] [address]-82 25 MG Orally Twice a day 1 tablet Losartan Potassium [facility] [address]-17 50 MG Orally Once a day at bedtime Sep 02, 2014 1 tablet Aspirin [facility] [address]-49 81 MG Orally Once a day 1 tablet Atorvastatin Calcium [facility] [address]-45 40 MG Orally Once a day 1 tablet Procedures Procedure Coding System Code Date OFFICE VISIT, EST-LOW COMPLEXITY (15 MIN.) CPT-4 22231 December 03, 2014 Vital Signs Date/Time: December 03, 2014 Height 62 in Weight 182.8 lbs Temperature 97.8 F Blood Pressure Diastolic 80 mm Hg Blood Pressure Systolic 136 mm Hg Cardiac Monitoring Heart Rate 60 /min BMI 33.43 Index Respiratory Rate 16 /min Results No Known Results Summary Purpose [employer] Submission
--- OUTSIDE RECORDS SUMMARY | 2016-11-21 12:32 | XMS REPORT ---
Author Author Nam Vargas Organization [employer] Address Unknown Phone Unavailable Care Team Providers Care Equity Manager Name Role Phone Nam Vargas CP Unavailable Allergies, Adverse Reactions, Alerts Substance Reaction Event Type Penicillin breathing problems Drug Allergy Imitrex Heart attack Drug Allergy Erythromycin vomiting Drug Allergy Problems Problem Type Condition Code Onset Dates Condition Status Assessment Hyperlipidemia, unspecified E78.5 Active Assessment Radiculopathy, thoracic region M54.14 Active Assessment Nicotine dependence, unspecified, uncomplicated F17.200 Active Assessment Impaired fasting glucose R73.01 Active Problem Hyperlipidemia, unspecified E78.5 Active Problem Coronary atherosclerosis of unspecified type of vessel, [place] or graft 414.00 Active Problem Peripheral vascular disease, unspecified I73.9 Active Assessment Peripheral vascular disease, unspecified I73.9 Active Assessment Pain in thoracic spine M54.6 Active Problem Coronary atherosclerosis of [place] coronary artery 414.01 Active Problem Tobacco use disorder 305.1 Active Medications Medication Code System Code Instructions Start Date End Date Status Dosage Losartan Potassium [facility] [address]-09 100 MG Orally Once a day at bedtime Sep 02, 2014 1 tablet Prilosec OTC [facility] [address]171 40 mg Orally Once a day May 13, 2015 1 tablet Norvasc [facility] [address]-45 5 MG Orally Once a day 1 tablet Metoprolol Tartrate [facility] [address]-50 25 MG Orally Twice a day 1 tablet Meclizine HCl [facility] [address]-36 25 MG Orally every 12 hours as needed for vertigo symptoms. May 13, 2015 1 capsule as needed Trazodone HCl [facility] [address]-36 50 MG Orally Once a day Mar 30, 2015 1/2 tablet at hs as needed for insomnia Aspirin [facility] [address]-06 81 MG Orally Once a day 1 tablet Procedures Procedure Coding System Code Date OFFICE VISIT, EST-MOD. COMPLEXITY (25 MIN) CPT-4 89802 Jul 20, 2015 Vital Signs Date/Time: Jul 20, 2015 Height 62 in Weight 195.12 lbs Temperature 97.6 F Blood Pressure Diastolic 74 mm Hg Blood Pressure Systolic 128 mm Hg Cardiac Monitoring Heart Rate 60 /min BMI 35.68 Index Oximetry 97 % Respiratory Rate 16 /min Results No Known Results Summary Purpose [employer] Submission
--- OUTSIDE RECORDS SUMMARY | 2016-11-21 12:32 | XMS REPORT ---
Author Author Nam Vargas Organization [employer] Address Unknown Phone Unavailable Care Team Providers Care Plant Wire Chief Name Role Phone Nam Vargas CP Unavailable Allergies No Known Allergies Problems Problem Type Condition ICD-9 Code Onset Dates Condition Status Problem Essential hypertension, benign 401.1 Active Problem Tobacco use disorder 305.1 Active Problem Coronary atherosclerosis of [place] coronary artery 414.01 Active Assessment Chest pain, other 786.59 Active Assessment Coronary atherosclerosis of [place] coronary artery 414.01 Active Medications Medication Code System Code Instructions Start Date End Date Status Dosage Ibuprofen [facility] [address]-05 200 MG Orally every 6 hrs 1 tablet as needed Losartan Potassium [facility] [address]-64 50 MG Orally Once a day at bedtime Sep 02, 2014 1 tablet Procedures Procedure Coding System Code Date OFFICE VISIT, EST-MOD. COMPLEXITY (25 MIN) CPT-4 29241 Sep 08, 2014 Vital Signs Date/Time: Sep 08, 2014 Height 62 in Weight 192.4 lbs Temperature 98.0 F Respiratory Rate 18 /min Blood Pressure Diastolic 78 mm Hg Blood Pressure Systolic 142 mm Hg BMI 35.19 Index Results No Known Results Summary Purpose [employer] Submission
--- OUTSIDE RECORDS SUMMARY | 2016-11-21 12:32 | XMS REPORT ---
Author Author Pablo Feliz Organization [employer] Address Unknown Phone Unavailable Care Team Providers Care Agricultural Adviser Name Role Phone Pablo Feliz CP Unavailable Allergies, Adverse Reactions, Alerts Substance Reaction Event Type Penicillin breathing problems Drug Allergy Imitrex Heart attack Drug Allergy Erythromycin vomiting Drug Allergy Problems Problem Type Condition Code Onset Dates Condition Status Problem Essential hypertension, benign 401.1 Active Problem Tobacco use disorder 305.1 Active Problem Coronary atherosclerosis of [place] coronary artery 414.01 Active Assessment Essential hypertension, benign 401.1 Active Assessment Tobacco use disorder 305.1 Active Assessment Colon cancer screening V76.51 Active Assessment Coronary atherosclerosis of [place] coronary artery 414.01 Active Medications Medication Code System Code Instructions Start Date End Date Status Dosage Rampart [facility] [address]-59 5-325 MG Orally 12 hours PRN November 04, 2014 1 tablet as needed Atorvastatin Calcium [facility] [address]-69 40 MG Orally Once a day 1 tablet Losartan Potassium [facility] [address]-37 50 MG Orally Once a day at bedtime Sep 02, 2014 1 tablet Ibuprofen [facility] [address]-45 200 MG Orally every 6 hrs 1 tablet as needed Aspirin [facility] [address]-82 81 MG Orally Once a day 1 tablet Metoprolol Tartrate [facility] [address]-97 25 MG Orally Twice a day 1 tablet Procedures Procedure Coding System Code Date LIPID PANEL CPT-4 89334 November 04, 2014 COMPREHENSIVE METABOLIC PANEL CPT-4 91828 November 04, 2014 HEMOSURE iFOB SCREENING, IN HOUSE CPT-4 89187 November 04, 2014 OFFICE VISIT, EST-LOW COMPLEXITY (15 MIN.) CPT-4 30101 November 04, 2014 Vital Signs Date/Time: November 04, 2014 Height 62 in Weight 184.25 lbs Temperature 97.6 F Blood Pressure Diastolic 85 mm Hg Blood Pressure Systolic 137 mm Hg Cardiac Monitoring Heart Rate 68 /min BMI 33.70 Index Respiratory Rate 20 /min Results No Known Results Summary Purpose [employer] Submission
--- OUTSIDE RECORDS SUMMARY | 2016-11-21 12:32 | XMS REPORT ---
Author Author Nam Vargas Organization [employer] Address Unknown Phone Unavailable Care Team Providers Care Sewer Builder Name Role Phone Nam Vargas CP Unavailable Allergies, Adverse Reactions, Alerts Substance Reaction Event Type Penicillin breathing problems Drug Allergy Imitrex Heart attack Drug Allergy Erythromycin vomiting Drug Allergy Problems Problem Type Condition ICD-9 Code Onset Dates Condition Status Assessment Unspecified acute reaction to stress 308.9 Active Assessment Tobacco use disorder 305.1 Active Problem Coronary atherosclerosis of [place] coronary artery 414.01 Active Problem Essential hypertension, benign 401.1 Active Problem Coronary atherosclerosis of unspecified type of vessel, [place] or graft 414.00 Active Assessment Insomnia, unspecified 780.52 Active Assessment Plantar fasciitis 728.71 Active Problem Tobacco use disorder 305.1 Active Assessment Coronary atherosclerosis of unspecified type of vessel, [place] or graft 414.00 Active Medications Medication Code System Code Instructions Start Date End Date Status Dosage Aspirin [facility] [address]-92 81 MG Orally Once a day 1 tablet Losartan Potassium [facility] [address]-16 50 MG Orally Once a day at bedtime Sep 02, 2014 1 tablet Atorvastatin Calcium [facility] [address]-41 40 MG Orally Once a day 1 tablet Metoprolol Tartrate [facility] [address]-39 25 MG Orally Twice a day 1 tablet Trazodone HCl [facility] [address]-72 50 MG Orally Once a day Mar 30, 2015 1/2 tablet at hs as needed for insomnia Procedures Procedure Coding System Code Date OFFICE VISIT, EST-MOD. COMPLEXITY (25 MIN) CPT-4 33106 Mar 30, 2015 Vital Signs Date/Time: Mar 30, 2015 Height 62 in Weight 192.8 lbs Temperature 98.2 F Blood Pressure Diastolic 88 mm Hg Blood Pressure Systolic 136 mm Hg Cardiac Monitoring Heart Rate 60 /min BMI 35.26 Index Oximetry 97 % Respiratory Rate 16 /min Results No Known Results Summary Purpose [employer] Submission
--- OUTSIDE RECORDS SUMMARY | 2016-11-21 12:33 | XMS REPORT | Continuity of Care Document ---
Author Author [facility] Organization [facility] Address Unknown Phone Unavailable Support Name Relationship Address Phone KERRI BERMEO MD Caregiver [address] [address] Unavailable DEIDRE DESIR DO Caregiver [address] [place] [address] Unavailable MORENO THORNE Next Of Kin Unknown [phone] Insurance Providers Guarantor Francie Allen Address [address] [place] [address] Email [email or web address] Payer Self Pay Subscriber's Name Francie Allen Relationship 18 Self Advance Directives Directive Response Recorded Date/Time Advanced Directives Type None 11/25/15 6:13pm Chief Complaint and Reason for Visit Chief Complaint Laceration Reason for Visit Laceration of scalp Problems Active Problems Medical Problem Onset Date [...] Besylate 5 Mg Tablet 5 Mg Oral Daily 07/27/15 Aspirin (Aspir 81) 81 Mg Tablet.dr 81 Mg Oral Daily 09/25/14 Atorvastatin Calcium 40 Mg Tablet 40 Mg Oral Bedtime 09/29/15 Clopidogrel Bisulfate (Plavix) 75 Mg Tablet 75 Mg Oral Daily 06/30 Fenofibrate Nanocrystallized (Fenofibrate) 48 Mg Tablet 48 Mg Oral Daily 09/29/15 Ferrous Sulfate (Iron) 325 Mg Capsule.er 325 Mg Oral Twice Daily With Meals BEST WITH FOOD. 11/25/15 Losartan Potassium 100 Mg Tablet 100 Mg Oral Daily 07/27/15 Metoprolol Tartrate 25 Mg Tablet 12.5 Mg Oral Give With Breakfast Take 1 tab, by mouth, one time a day (with breakfast). 09/28/15 Nitroglycerin (Nitrostat) 0.4 Mg Tablet 0.4 Mg Sublingual Every 5 Minutes X 3 as needed for Chest Tightness 09/25/14 Omeprazole (Prilosec) 20 Mg Capsule.dr 20 Mg Oral Before Meals Twice A Day 07/26/15 Sulfamethoxazole/Trimethoprim (Bactrim Ds Tablet) 1 Each Tablet 1 Tab Oral Twice A Day 14 Tablet Take 1 tablet, by mouth, 2 times a day. 11/25/15 Trazodone Hcl 50 Mg Tablet 25 Mg [...] Problem Response Recorded Date/Time Onset Date Status Chewing Tobacco Status No 11/25/2015 6:10pm Not Applicable Not Applicable Hx Substance Use No 11/25/2015 6:10pm Not Applicable Not Applicable Hx Alcohol Use Y RARE 11/25/2015 6:10pm Not Applicable Not Applicable Has the pt used tobacco in the last 12 months Yes 09/29/2015 6:33am Not Applicable Not Applicable Query Response Start Date Stop Date Smoking Status Current every day smoker Hospital Discharge Instructions No hospital discharge instructions. Plan of Care Discharge Date 11/25/15 7:46pm Disposition 01 DISCHARGED HOME, SELF-CARE Condition at Discharge Stable Instructions/Education Provided DI for Laceration Repair Prescriptions See Medication Section Referrals DEIDRE DESIR DO Address: [address] [place] [phone] Additional Instructions/Education Have the sutures removed in 7-10 days in primary care providers office. May wash the area daily with soap and water as well. Keep clean and dry. Take the Bactrim as prescribed. May take Tylenol/Motrin as needed for pain. Care Plan and Goals Physician Care Plan Problem:Scalp Laceration Goal: Follow up with primary care provider Instructions: Take medications and follow care plan as discussed/written Functional Status No functional status results. Allergies, Adverse Reactions, Alerts Allergen Type Severity Reaction Status Last Updated sumatriptan succinate Allergy Severe CT Active 11/25/15 Penicillin Allergy Severe RESP Active 11/25/15 Erythromycin base Allergy Unknown NAUSEA Active 11/25/15 Immunizations Immunization Event Date Type Not Given Reason Dose Number Lot Number [employer] VIS Given Tdap 11/25/15 Administered 1 [id number] Xradia 11/25/15 Query Response on File Recorded Date/Time Hx Influenza Vaccination Y APR 2015 09/29/15 6:33am Hx Pneumococcal Vaccination No 09/29/15 6:33am Hx Influenza Vaccination Y APR 2015 09/29/15 6:33am Influenza Vaccine Hx APR 2015 11/25/15 6:10pm Tdap Vaccine Hx NOT CURRENT 11/25/15 7:44pm Vital Signs Acute Vital Signs Vital Response Date/Time Temperature (Fahrenheit) 98.2 deg F (96.8 - 99.1) 11/25/2015 7:46pm Temperature (Calculated Celsius) 36.01270 degrees C (36.0 - 37.3) 11/25/2015 7:46pm Temperature Source Temporal 09/29/2015 8:00pm Pulse Rate (adult) 71 bpm (60 - 100) 11/25/2015 7:46pm Respiratory Rate 16 breaths/min (10 - 20) 11/25/2015 7:46pm O2 Sat by Pulse Oximetry 99 % (90 - 100) 11/25/2015 7:46pm Oxygen Delivery Method Room Air 09/29/2015 11:01pm Oxygen Delivery Method Room Air 09/30/2015 7:58am Blood Pressure 135/71 mm Hg 11/25/2015 7:46pm Blood Pressure Source Automatic Cuff 09/30/2015 7:58am Height (Feet) 5 feet 11/25/2015 6:00pm Height (Inches) 2.00 inches 11/25/2015 6:00pm Weight (Kilograms) 89.500 kg 11/25/2015 6:00pm Body Mass Index (BMI) 36.0 11/25/2015 6:00pm Results Laboratory Results Test Name Result Units Flags Reference Collection Date/Time Result Date/ Time Comments White Blood Count 18.7 T/MM3 H 4.5-11.0 09/30/2015 5:08am 09/30/2015 5: 35am Red Blood Count 3.60 M/MM3 L 4.00-5.20 09/30/2015 5:08am 09/30/2015 5: 35am Hemoglobin 10.9 GM/DL L 12-16 09/30/2015 5:08am 09/30/2015 5:35am Hematocrit 33.8 % L 36-46 09/30/2015 5:08am 09/30/2015 5:35am Mean Corpuscular Volume 93.9 UM3 80-100 09/30/2015 5:08am 09/30/2015 5: 35am Mean Corpuscular Hemoglobin 30.3 UUG 26-34 09/30/2015 5:08am 2015 5:35am Mean Corpuscular Hemoglobin Concent 32.2 GM/DL 31-37 09/30/2015 5:08am 09/30/2015 5:35am RDW Standard Deviation 47.7 FL 36.9-50.2 09/30/2015 5:08am 09/30/2015 5 :35am Platelet Count 336 T/MM3 130-400 09/30/2015 5:08am 09/30/2015 5:35am Mean Platelet Volume 9.1 UM3 L 9.4-12.4 09/30/2015 5:08am 09/30/2015 5: 35am Neutrophils (%) (Auto) 72.0 % H 33-66 09/29/2015 2:32p 09/29/2015 2: 38pm Lymphocytes (%) (Auto) 20.9 % L 23-45 09/29/2015 2:32pm 09/29/2015 2: 38pm Monocytes (%) (Auto) 5.4 % 0-9.0 09/29/2015 2:32p 09/29/2015 2:38pm Eosinophils (%) (Auto) 1.2 % 0-4 09/29/2015 2:32p 09/29/2015 2:38pm Basophils (%) (Auto) 0.3 % 0-2 09/29/2015 2:32p 09/29/2015 2:38pm Immature Granulocyte % (Auto) 0.2 % 0.0-0.5 09/29/2015 2:32p 2015 2:38pm Absolute Neutrophils (auto) 10.4 T/MM3 H 1.8-7.7 09/29/2015 2:32pm 09/28 2:38pm Absolute Lymphocytes (auto) 3.0 T/MM3 1-4.8 09/29/2015 2:32pm 2015 2:38pm Absolute Monocytes (auto) 0.8 T/MM3 0-0.8 09/29/2015 2:32pm 09/29/2015 2:38pm Absolute Eosinophils (auto) 0.2 T/MM3 0-0.5 09/29/2015 2:32pm 2015 2:38pm Absolute Basophils (auto) 0.0 T/MM3 0-0.2 09/29/2015 2:32pm 09/29/2015 2:38pm Absolute Immature Granulocyte (auto 0.03 T/MM3 0.00-0.03 09/29/2015 2: 32pm 09/29/2015 2:38pm Neutrophils % (Manual) 88.0 % H 33-66 09/30/2015 5:08am 09/30/2015 6: 45am Lymphocytes % (Manual) 10.0 % L 23-45 09/30/2015 5:08am 09/30/2015 6: 45am Monocytes % (Manual) 2.0 % 0-9.0 09/30/2015 5:08am 09/30/2015 6:45am Absolute Neutrophils (Manual) 16.5 T/MM3 H 1.8-7.7 09/30/2015 5:08am 6:45am Lymphocytes # (Manual) 1.9 T/MM3 1-4.8 09/30/2015 5:08am 09/30/2015 6: 45am Monocytes # (Manual) 0.4 T/MM3 0-0.8 09/30/2015 5:08am 09/30/2015 6: 45am Red Cell Morphology Comment NORMAL 09/30/2015 5:08am 09/30/2015 6: 45am Activated Clotting Time 168 SEC H 84-139 09/29/2015 10:59am 09/29/2015 11:04am Icterus Index < 2 0-7 09/30/2015 5:08am 09/30/2015 5:37am Chemistry Specimen Hemolysis < 15 0-25 09/30/2015 5:08am 09/30/2015 5 :37am 0-25: Specimen Exhibited No Hemolysis. Turbidity < 20 0-20 09/30/2015 5:08am 09/30/2015 5:37am Sodium Level 139 MEQ/L 134-144 09/30/2015 5:08am 09/30/2015 5:37am Potassium Level 4.1 MEQ/L 3.6-5 09/30/2015 5:08am 09/30/2015 5:37am Chloride Level 105 MEQ/L 98-107 09/30/2015 5:08am 09/30/2015 5:37am Carbon Dioxide Level 23 MEQ/L 22-30 09/30/2015 5:08am 09/30/2015 5: 37am Anion Gap 11 MEQ/L 5-15 09/30/2015 5:08am 09/30/2015 5:37am Blood Urea Nitrogen 11.0 MG/DL 7-17 09/30/2015 5:08am 09/30/2015 5: 37am Creatinine 0.9 MG/DL 0.7-1.2 09/30/2015 5:08am 09/30/2015 5:37am BUN/Creatinine Ratio 12 RATIO 6-26 09/30/2015 5:08am 09/30/2015 5:37am Glomerular Filtration Rate Calc 66 09/30/2015 5:08am 09/30/2015 5: 37am Glucose Level 161 MG/DL H 65-110 09/30/2015 5:08am 09/30/2015 5:37am Calculated Osmolality 270 MOSM/KG 261-280 09/30/2015 5:08am 09/30/2015 5:37am Calcium Level 8.9 MG/DL 8.4-10.2 09/30/2015 5:08am 09/30/2015 5:37am Cholesterol Level 167 MG/DL 132-199 09/29/2015 6:51am 09/30/2015 1: 35am Triglycerides Level 344 MG/DL H 35-135 09/29/2015 6:51am 09/30/2015 1: 35am HDL Cholesterol Direct 38 MG/DL L 40-60 09/29/2015 6:51am 09/30/2015 1: 35am LDL Cholesterol, Calculated 60.2 L 66-159 09/29/2015 6:51am 2015 1:35am VLDL Cholesterol 68.8 MG/DL H 0-28 09/29/2015 6:51am 09/30/2015 1:35am Cholesterol/HDL Ratio 4.4 RATIO H 0-4.0 09/29/2015 6:51am 09/30/2015 1: 35am Procedures No known history of procedures. Encounters Encounter Location Arrival/Admit Date Discharge/Depart Date Attending Provider Departed Emergency Room [facility] 11/25/15 5:58pm 11/25/15 7: 46pm KERRI BERMEO MD Departed [facility] 09/29/15 6:14am 09/30/15 10:47am MIGUELINA VALDIVIA MD Recent Diagnosis
--- NOTE | 2016-11-21 12:35 | NUR ---
YANELIS BERNAL AT BEDSIDE TO EXAMINE Pt.
--- NOTE | 2016-11-21 12:46 | ERPDOC ---
Departure Disposition Decision Date: November 21, 2016 Disposition Decision Time: 13:33 Disposition: 01 DISCHARGED HOME, SELF-CARE Impression Impression Impression: Primary Impression: Right knee pain Chronicity: acute Qualified Codes: M25.561 - Pain in right knee Severity: Moderate Condition: Stable Seen By: Mid-level only Referrals: DEIDRE DESIR DO (Family) Patient Instructions: Knee Pain (ED) Problems/Meds/Labs Reviewed?: Yes Medications reviewed and manag: Yes Additional Instructions: Wear your knee brace as needed for comfort. Ice and elevate the right knee. I do want you to take some Ibuprofen on a schedule and use the Flint as needed for pain. Follow up with your primary care provider if this is not improving at all. Follow up care ordered?: Yes Mental Status: Alert Scripts Hydrocodone/Acetaminophen (Flint 5-325 Tablet) 5-325 Tablet 1 TAB PO Q6H Y for PAIN, #12 TAB 0 Refills Prov: ESTEPHANIA BERNAL EMERGENCY SERVICES DISPATCHER 11/21/16 HPI General Chief Complaint: Lower Extremity Injury Stated Complaint: PT FELL AND HURT RIGHT KNEE Time Seen by Provider: 12:35 Source: patient Exam Limitations: no limitations HPI Knee Initial Comments She was getting out of the truck on Sunday, 2 days ago and started to fall. She caught herself before falling but since then has had pain in the right knee with full extension and flexion. She has had some swelling as well. Pain with ambulation due to the mobility of the knee. Many years ago she had trouble with her knee and had to have steroid injections but has not had any pain or injury other than this in the last several years. Occurred At: home Onset: Rapid Duration: other (Over the last 2 days) Severity: moderate Method of Injury: unknown Associated Symptoms: pain (righ tknee), stiffness, unable to bend (without pain but is able to fully flex), unable to straighten (to full extension), DENIES: clicking, locking, numbness, popping, redness, swelling, weakness Allergies: Coded Allergies: Penicillins (Verified Allergy, Severe, RESP, 10/25/16) sumatriptan succinate (Verified Allergy, Severe, NC, 10/25/16) erythromycin base (Verified Allergy, Unknown, NAUSEA, 10/25/16) Past History Past Medical History Metabolic: hypertension ENMT: dental problems Cardiac: CAD, NC, angina Hx Echocardiogram: No Respiratory: asthma, pneumonia GI: GERD Neurological: migraines Surgical History Cardiac: cardiac cath, cardiac stent Family History Family PMH: FOUND: hypertension Vaccines Hx Influenza Vaccination: Yes (APR 2016) Hx Pneumococcal Vaccination: Yes (2013) Social History Sexuality: male partner Review of Systems Constitutional Constitutional: DENIES: chills, dizziness, fatigue, fever, weakness Musculoskeletal General: joint pain (right medial knee pain), joint swelling (right knee), pain (right knee pain), tenderness (right medial knee), DENIES: weakness Integumentary Skin: DENIES: color change, rash Neurological General: DENIES: headache, numbness, tingling, weakness Exam General General Nourishment: well nourished, well developed, appears stated age, no acute distress, adult General Body Habitus: well groomed Vital Signs: RN Vital Signs have been reviewed: Yes Height (Feet): 5 Height (Inches): 3.00 Fastrak Knee Knee : Knee: Right Inspection: position of comfort (partially extended ), swelling (mild swelling when compared to the left knee on the right medial knee), NOT FOUND: discoloration, erythema, pallor Palpation: cool, tender med. joint line, NOT FOUND: tender lat. joint line, warm Stability: A/P cruciate, MCL intact, NOT FOUND: anterior drawer sign, posterior drawer sign ROM: extension to 180 degrees (but with pain), flexion to 0 degrees (but with pain), NOT FOUND: clicking, locking, popping Neuro: soft touch intact, NOT FOUND: patellar tendon reflex, strength Dorsalis Pedis pulse: 2+ Neurologic RN Documented GCS Eye Opening: Verbal: Motor: Total: Differential Diagnoses Considering: Contusion, Dislocation, Fracture, Ligament Tear ACL, Ligament Tear PCL, Meniscal Injury, Patellar Dislocation, Sprain, Strain, Tibial Plateau Fracture Progress Results/Orders Orders Procedure Category Date Status Time Knee Right 3 Views RAD 11/21/16 Resulted Progress Progress Xray today is negative. She does have a knee brace at home that she is going to use. Does decline use of a knee immobilizer. Will have her ice and elevate. Ibuprofen and Flint as needed for pain. Follow up with her PCP if this is not improving. Xray Xray : Reason for Exam: right knee pain Xray: Knee R Interpretation: Normal NOLD,ESTEPHANIA N EMERGENCY SERVICES DISPATCHER November 21, 2016 12:46
--- NOTE | 2016-11-21 12:47 | NUR ---
TO X-RAY VIA W/C
--- NOTE | 2016-11-21 12:58 | NUR ---
RETURN FROM X-RAY
--- OUTSIDE RECORDS SUMMARY | 2016-11-21 13:21 | XMS REPORT | Continuity of Care Document ---
Author Author [facility] Organization [facility] Address Unknown Phone Unavailable Support Name Relationship Address Phone RADHA ERWIN MD Caregiver [facility] [address] [place], [place] [phone] VILMA HIDALGO MD Caregiver [address] [place] [address] [place] [phone] MORENO THORNE Next Of Kin Unknown [phone] Insurance Providers Payer Name Policy Number Subscriber [...] Status Last Updated sumatriptan succinate Allergy Severe ID Active 09/08/14 Penicillin Allergy Severe RESP Active 09/08/14 Erythromycin base Allergy Unknown NAUSEA Active 09/08/14 Immunizations Name Given Type Hx Influenza Vaccination No Historical Hx Pneumococcal Vaccination No Historical Hx Influenza Vaccination No Historical Vital Signs Acute Vital Signs Vital Response Date/Time Temperature (Fahrenheit) 97.6 deg F (96.8 - 99.1) Temperature (Calculated Celsius) 36.62253 degrees C (36.0 - 37.3) Pulse Rate [...] 15, 2012 3:12pm LAB TEST FORM REQUEST [id number] - Lipase March 25, 2014 8:13am 36 [...] 08, 2014 6:05pm 7.6 % N 0-9.0 IG-Tnp-W-Type Natriuretic Peptide September 08, 2014 6:05pm 1120 [...] Has specimen been collected/obtained? Y Urine Specific [place] March 25, 2014 7:53am >=1.030 H - [...]
--- OUTSIDE RECORDS SUMMARY | 2016-11-21 13:21 | XMS REPORT | Continuity of Care Document ---
Author Author [facility] Organization [facility] Address Unknown Phone Unavailable Support Name Relationship Address Phone MIGUELINA VALDIVIA MD Caregiver [facility] [address] [place] [address] [address] [place] [phone] MORENO THORNE Next Of Kin Unknown [phone] Insurance Providers Payer Name Policy Number Subscriber [...] Status Last Updated sumatriptan succinate Allergy Severe [place] Active 09/25/14 Penicillin Allergy Severe RESP Active 09/25/14 Erythromycin base Allergy Unknown NAUSEA Active 09/25/14 Immunizations Name Given Type Hx Influenza Vaccination No Historical Hx Pneumococcal Vaccination No Historical Hx Influenza Vaccination No Historical Vital Signs Acute Vital Signs Vital Response Date/Time Temperature (Fahrenheit) 97.4 deg F (96.8 - 99.1) Temperature (Calculated Celsius) 36.32373 degrees C (36.0 - 37.3) Temperature Source [...] 15, 2012 3:12pm LAB TEST FORM REQUEST [id number] - Lipase March 25, 2014 8:13am 36 [...] COMMENT NURSE WILL CALL WHEN PATIENT ARRIVES CX-Nfh-K-Type Natriuretic Peptide September 08, 2014 6:05pm 1120 [...] Has specimen been collected/obtained? Y Urine Specific [place] March 25, 2014 7:53am >=1.030 H - [...] 5 DAYS Name: FRANCIE THORNE Unit #: [id number] : [id number] Sex: F Loc / Svc: ED DOS: 09/08/14 Signed Report #: [id number] DIAGNOSTIC IMAGING REPORT TYPE OF EXAM: CHEST [...] of procedures. Encounters Encounter Location Date/Time Departed [facility] 09/25/14 11:19am Registered [facility] 09/16/14 9:22am Departed Emergency Room [facility] 09/08/14 5:52pm
--- OUTSIDE RECORDS SUMMARY | 2016-11-21 13:21 | XMS REPORT | Continuity of Care Document ---
Author Author [facility] Organization [facility] Address Unknown Phone Unavailable Support Name Relationship Address Phone RADHA ERWIN MD Caregiver [facility] [address] [place] [address] [phone] MARY JUSTICE DO Caregiver [facility] [address] [place] [address] MORENO THORNE Next Of Kin Unknown [phone] Insurance Providers Payer Name Policy Number Subscriber [...] Status Last Updated sumatriptan succinate Allergy Severe [place] Active 03/25/14 Penicillin Allergy Severe RESP Active 03/25/14 Erythromycin base Allergy Unknown NAUSEA Active 03/25/14 Immunizations Name Given Type Hx Influenza Vaccination No Historical Hx Pneumococcal Vaccination No Historical Hx Influenza Vaccination No Historical Vital Signs Acute Vital Signs Vital Response Date/Time Temperature (Fahrenheit) 98.8 deg F (96.8 - 99.1) Temperature (Calculated Celsius) 37.21701 degrees C (36.0 - 37.3) Temperature Source [...] 15, 2012 3:12pm LAB TEST FORM REQUEST [id number] - Lipase March 25, 2014 8:13am 36 [...] Has specimen been collected/obtained? Y Urine Specific [place] March 25, 2014 7:53am >=1.030 H - [...] 5 DAYS Name: RACIEL THORNE Unit #: [id number] : [id number] Sex: F Loc / Svc: ED DOS: 03/25/14 Signed Report #: [id number] DIAGNOSTIC IMAGING REPORT TYPE OF EXAM: CT [...]
--- NOTE | 2016-11-21 13:31 | DI ---
EXAM: KNEE RIGHT 3 VIEWS LOCATION OF DICTATION: [place] HISTORY: ITS.REASON: right knee pain COMPARISON: No prior studies available for comparison. FINDINGS: There is normal alignment of the tibiofemoral and patellofemoral joints. There is no dislocation or subluxation. No fractures are identified. Mild joint space narrowing suggested about the medial joint compartment. Normal osseous mineralization. No significant joint effusions. IMPRESSION: 1. No evidence for malalignment or acute fracture. 2. Mild joint space narrowing demonstrated about the medial joint compartment. .
[2016-11-21] MEDS ORDERED: HYDR-4246 PO (13:38)
[2016-11-21 13:49] VITALS: BP 147/65; PULSE 52; RESP 14; TEMP 98.3; O2SAT 96
--- NOTE | 2016-11-21 13:49 | NUR ---
DEPART Pt EDUCATION REGARDING NORCO, IBUPROFEN, KNEE BRACE, ICE/ELEVATE, AND F/U WITH PCP REVIEWED WITH Pt. QUESTIONS ANSWERED, RX PROVIDED. Pt LEFT ED AMBULATORY.
== END 2016-11-21 13:49 | disposition home or self-care (01) ==
LOC: ED 12:26
DX: S89.91XA Unspecified injury of right lower leg, initial encounter (principal); X50.1XXA Overexertion from prolonged static or awkward postures, initial encounter; Y93.89 Activity, other specified; Y92.009 Unspecified place in unspecified non-institutional (private) residence as the place of occurrence of the external cause; Y99.8 Other external cause status